=== PATIENT | male | born 1940 | race Caucasian/White ===

== ENCOUNTER 2017-04-25 14:19 | Emergency (ER) | payer MEDICARE, OTHER ==
[~2017-04-25] VITALS: Ht 185.4 cm; Wt 80.0 kg
[~2017-04-25 14:19] MED LIST: ADVAIR; ADVAIR DISK1; ALBUTEROL S2.5 MG/.5 IN; ALTACE5 M1 OR; HOME NEBULIZER; JANUVIA100 MG OR; METOPROL TAR25 MG OR; MUCINEX600 MG; PLAVIX75 MG OR; SIMVASTATIN80 MG OR; SINGULAIR10 MG OR; SKELAXIN800 MG OR; SPIRIVA IN; TAM75CAP OR; TGT ASPIRIN81 MG OR; ZETIA10 MG OR
[2017-04-25 14:42] LABS: HEMATOCRIT 42.7 % (39.0-50.0); HEMOGLOBIN 14.4 g/dl (14.0-18.0); IMMATURE GRANULOCYTES 0.7 % (0.0-1.0); MEAN CELL VOLUME 91.8 fL CALC (80.0-100.0); MEAN CORPUSCULAR HGB CONC 33.7 g/L CALC (32.0-36.0); NEUT# 6.45 thou/uL (1.82-7.42); RED BLOOD COUNT 4.65 mill/uL (4.70-6.10); RED CELL DISTRI WIDTH 13.8 % (11.5-15.5)
[2017-04-25] MEDS ORDERED: METOPROLOL SUCC25 MG PO (14:49)
[2017-04-25] MEDS ORDERED: SIMVASTATIN40 MG PO (14:51)
[2017-04-25 14:55] LABS: ALBUMIN 4.4 g/dL (3.2-5.0); ALKALINE PHOSPHATASE 65 u/l (38-126); ANION GAP 19 (6-22 (CALC)); BUN 16 mg/dL (8-23); BUN/CREATININE RATIO 15 (12-20 (CALC)); CALCIUM 9.2 mg/dL (8.4-10.2); CARBON DIOXIDE 23 mmol/l (22-30); CHLORIDE 103 mmol/l (95-108); CREATININE 1.1 mg/dL (0.7-1.3); GFR > 60 ML/MIN (>=60 (CALC)); GFR FOR AFR.AMER. > 60 ML/MIN (>=60 (CALC)); GLUCOSE 166 mg/dL (82-115); POTASSIUM 4.9 mmol/l (3.5-5.1); SGOT/AST 38 u/l (19-48); SGPT/ALT 30 u/l (11-66); SODIUM 139 mmol/l (137-146)
[2017-04-25] MEDS ORDERED: RAMIPRIL2.5 MG PO (14:55)
[2017-04-25 15:03] LABS: MYOGLOBIN 89 ng/mL (0 - 121)
[2017-04-25] MEDS ORDERED: METFORMIN500 MG PO (15:24)
[2017-04-25] MEDS ORDERED: ADVAIR DISK1 INH (15:24)
[2017-04-25] MEDS ORDERED: BRIMONIDINE TAR0.2 % OS (15:25)
[2017-04-25 17:01] LABS: URINE BILIRUBIN - DIPSTICK NEGATIVE (NEGATIVE); URINE BLOOD DIPSTICK NEGATIVE (NEGATIVE); URINE CLARITY SLIGHT CLOUDY; URINE COLOR YELLOW; URINE GLUCOSE - DIPSTICK NEGATIVE (NEGATIVE); URINE KETONE NEGATIVE (NEGATIVE); URINE LEUK ESTERASE NEGATIVE (NEGATIVE); URINE NITRITE - DIPSTICK NEGATIVE (Negative); URINE PROTEIN - DIPSTICK TRACE mg/dL (NEG-TRACE); URINE UROBILINOGEN - DIPSTICK 0.2 E.U./dL (0.2)
[2017-04-25] MEDS ORDERED: IMODIUM2 MG PO (17:04)
[2017-04-25] MEDS ORDERED: CIPROFLOXACN500 MG PO (17:04)
[2017-04-25 18:31] VITALS: BP 108/57
== END 2017-04-25 18:31 | disposition home or self-care (01) ==
LOC: ED 14:19
PROVIDERS: Emergency Medicine
DX: R19.7 Diarrhea, unspecified (principal); R53.1 Weakness; J44.9 Chronic obstructive pulmonary disease, unspecified; E11.9 Type 2 diabetes mellitus without complications; I25.10 Atherosclerotic heart disease of native coronary artery without angina pectoris; Z95.5 Presence of coronary angioplasty implant and graft; R94.31 Abnormal electrocardiogram [ECG] [EKG]

== ENCOUNTER 2017-12-20 07:59 | Observation (INO) | payer MEDICARE, OTHER ==
[~2017-12-20] VITALS: Ht 185.4 cm; Wt 71.7 kg
[~2017-12-20 07:59] MED LIST changes: +ADVAIR DISK1 INH; +BRIMONIDINE TAR0.2 % OS; +CIPROFLOXACN500 MG PO; +IMODIUM2 MG PO; +LOPRESSOR25 M1 PO; +METFORMIN500 MG PO; +RAMIPRIL2.5 MG PO; +SIMVASTATIN40 MG PO
[2017-12-20] MEDS ORDERED: SPIRIVA HANDIH18 MCG PO (08:22)
[2017-12-20] MEDS ORDERED: ZETIA10 MG PO (08:23)
[2017-12-20] MEDS ORDERED: ELIQUIS5 MG PO (08:26)
[2017-12-20] MEDS ORDERED: PROAIR HFA108 MCG/AC (08:28)
[2017-12-20 08:44] LABS: HEMATOCRIT 45.2 % (39.0-50.0); HEMOGLOBIN 15.4 g/dl (14.0-18.0); IMMATURE GRANULOCYTES 0.7 % (0.0-1.0); MEAN CELL VOLUME 91.3 fL CALC (80.0-100.0); MEAN CORPUSCULAR HGB 31.1 pG CALC (26.0-32.0); MEAN CORPUSCULAR HGB CONC 34.1 g/L CALC (32.0-36.0); NEUT# 5.16 thou/uL (1.82-7.42); RED BLOOD COUNT 4.95 mill/uL (4.70-6.10); RED CELL DISTRI WIDTH 13.4 % (11.5-15.5)
[2017-12-20 08:54] LABS: ALBUMIN 4.6 g/dL (3.2-5.0); ALKALINE PHOSPHATASE 70 u/l (38-126); ANION GAP 18 (6-22 (CALC)); BILIRUBIN, TOTAL 0.7 mg/dL (0.0-1.4); BUN 14 mg/dL (8-23); BUN/CREATININE RATIO 18 (12-20 (CALC)); CARBON DIOXIDE 28 mmol/l (22-30); CHLORIDE 100 mmol/l (95-108); CREATININE 0.8 mg/dL (0.7-1.3); GFR > 60 ML/MIN (>=60 (CALC)); GFR FOR AFR.AMER. > 60 ML/MIN (>=60 (CALC)); LIPASE 69 u/l (23-300); POTASSIUM 4.5 mmol/l (3.5-5.1); SGOT/AST 22 u/l (19-48); SGPT/ALT 30 u/l (11-66); SODIUM 142 mmol/l (137-146); TOTAL PROTEIN 7.5 g/dL (6.3-8.2)
[2017-12-20 10:30] VITALS: BP 187/98
[2017-12-20 15:54] VITALS: BP 150/78
[2017-12-20 17:15] LABS: MAGNESIUM 1.8 mg/dL (1.6-2.3)
[2017-12-20 19:05] VITALS: BP 166/86
[2017-12-21 00:05] VITALS: BP 170/92
[2017-12-21 05:29] LABS: HEMATOCRIT 45.1 % (39.0-50.0); HEMOGLOBIN 15.2 g/dl (14.0-18.0); MEAN CELL VOLUME 89.8 fL CALC (80.0-100.0); MEAN CORPUSCULAR HGB 30.3 pG CALC (26.0-32.0); MEAN CORPUSCULAR HGB CONC 33.7 g/L CALC (32.0-36.0); RED BLOOD COUNT 5.02 mill/uL (4.70-6.10); RED CELL DISTRI WIDTH 13.3 % (11.5-15.5)
[2017-12-21 05:30] VITALS: BP 164/87
[2017-12-21 05:46] LABS: ANION GAP 18 (6-22 (CALC)); BUN 12 mg/dL (8-23); BUN/CREATININE RATIO 21 (12-20 (CALC)); CARBON DIOXIDE 23 mmol/l (22-30); CHLORIDE 101 mmol/l (95-108); CREATININE 0.6 mg/dL (0.7-1.3); GFR > 60 ML/MIN (>=60 (CALC)); GFR FOR AFR.AMER. > 60 ML/MIN (>=60 (CALC)); POTASSIUM 4.1 mmol/l (3.5-5.1); SODIUM 138 mmol/l (137-146)
[2017-12-21 08:00] VITALS: BP 167/88
[2017-12-21 10:20] VITALS: BP 148/70
[2017-12-21 12:00] VITALS: BP 137/75
[2017-12-21] MEDS ORDERED: AMLODIPINE BESYL5 MG PO (12:50)
[2017-12-21] MEDS ORDERED: ISOSORB MONO30 MG PO (12:50)
== END 2017-12-21 14:10 | disposition home or self-care (01) ==
LOC: ED 07:59 → ED-I 09:29 → ED 09:46 → MS2 09:47
PROVIDERS: Emergency Medicine; Nurse Practitioner Family; ADMIT Internal Medicine; ATTEND Internal Medicine
DX: R07.9 Chest pain, unspecified (principal); I16.0 Hypertensive urgency; I10 Essential (primary) hypertension; E11.9 Type 2 diabetes mellitus without complications; F03.90 Unspecified dementia, unspecified severity, without behavioral disturbance, psychotic disturbance, mood disturbance, and anxiety; J96.11 Chronic respiratory failure with hypoxia; E78.5 Hyperlipidemia, unspecified; J44.9 Chronic obstructive pulmonary disease, unspecified; I25.10 Atherosclerotic heart disease of native coronary artery without angina pectoris; I48.0 Paroxysmal atrial fibrillation; Z87.891 Personal history of nicotine dependence; Z79.01 Long term (current) use of anticoagulants; R63.6 Underweight; Z68.20 Body mass index [BMI] 20.0-20.9, adult; Z95.5 Presence of coronary angioplasty implant and graft; Z79.84 Long term (current) use of oral hypoglycemic drugs; Z99.81 Dependence on supplemental oxygen

== ENCOUNTER 2017-12-21 16:02 | Emergency (ER) | payer MEDICARE, OTHER ==
[~2017-12-21] VITALS: Ht 185.4 cm; Wt 78.0 kg
[~2017-12-21 16:02] MED LIST changes: +AMLODIPINE BESYL5 MG PO; +ELIQUIS5 MG PO; +ISOSORB MONO30 MG PO; +PROAIR HFA108 MCG/AC; +SPIRIVA HANDIH18 MCG PO; +ZETIA10 MG PO
[2017-12-21 17:04] LABS: HEMATOCRIT 43.4 % (39.0-50.0); HEMOGLOBIN 14.6 g/dl (14.0-18.0); IMMATURE GRANULOCYTES 0.6 % (0.0-1.0); MEAN CORPUSCULAR HGB 30.6 pG CALC (26.0-32.0); MEAN CORPUSCULAR HGB CONC 33.6 g/L CALC (32.0-36.0); NEUT# 10.76 thou/uL (1.82-7.42); RED BLOOD COUNT 4.77 mill/uL (4.70-6.10); RED CELL DISTRI WIDTH 13.5 % (11.5-15.5)
[2017-12-21 17:20] LABS: ALBUMIN 4.1 g/dL (3.2-5.0); ALKALINE PHOSPHATASE 68 u/l (38-126); ANION GAP 20 (6-22 (CALC)); BILIRUBIN, TOTAL 0.5 mg/dL (0.0-1.4); BUN 20 mg/dL (8-23); BUN/CREATININE RATIO 24 (12-20 (CALC)); CARBON DIOXIDE 23 mmol/l (22-30); CHLORIDE 97 mmol/l (95-108); CREATININE 0.9 mg/dL (0.7-1.3); GFR > 60 ML/MIN (>=60 (CALC)); GFR FOR AFR.AMER. > 60 ML/MIN (>=60 (CALC)); POTASSIUM 4.4 mmol/l (3.5-5.1); SGOT/AST 20 u/l (19-48); SGPT/ALT 34 u/l (11-66); SODIUM 135 mmol/l (137-146); TOTAL PROTEIN 6.7 g/dL (6.3-8.2)
[2017-12-21 17:42] VITALS: BP 140/58
== END 2017-12-21 17:47 | disposition home or self-care (01) ==
LOC: ED 16:02
PROVIDERS: Emergency Medicine
DX: Z86.73 Personal history of transient ischemic attack (TIA), and cerebral infarction without residual deficits (principal); R41.82 Altered mental status, unspecified; E11.9 Type 2 diabetes mellitus without complications; F03.90 Unspecified dementia, unspecified severity, without behavioral disturbance, psychotic disturbance, mood disturbance, and anxiety; R07.9 Chest pain, unspecified

== ENCOUNTER 2018-01-18 09:08 | Emergency (ER) | payer MEDICARE, OTHER ==
[~2018-01-18] VITALS: Ht 185.4 cm; Wt 75.0 kg
[2018-01-18 09:42] LABS: HEMATOCRIT 40.2 % (39.0-50.0); HEMOGLOBIN 13.5 g/dl (14.0-18.0); IMMATURE GRANULOCYTES 0.5 % (0.0-1.0); MEAN CORPUSCULAR HGB 30.9 pG CALC (26.0-32.0); MEAN CORPUSCULAR HGB CONC 33.6 g/L CALC (32.0-36.0); NEUT# 5.04 thou/uL (1.82-7.42); RED BLOOD COUNT 4.37 mill/uL (4.70-6.10); RED CELL DISTRI WIDTH 13.5 % (11.5-15.5)
[2018-01-18 09:48] LABS: ANION GAP 17 (6-22 (CALC)); BUN 14 mg/dL (8-23); BUN/CREATININE RATIO 19 (12-20 (CALC)); CARBON DIOXIDE 28 mmol/l (22-30); CHLORIDE 100 mmol/l (95-108); CREATININE 0.8 mg/dL (0.7-1.3); GFR > 60 ML/MIN (>=60 (CALC)); GFR FOR AFR.AMER. > 60 ML/MIN (>=60 (CALC)); POTASSIUM 4.8 mmol/l (3.5-5.1); SODIUM 140 mmol/l (137-146)
[2018-01-18 09:50] VITALS: BP 140/72
== END 2018-01-18 09:50 | disposition short-term general hospital (02) ==
LOC: ED 09:08
PROVIDERS: Family Medicine
DX: I21.3 ST elevation (STEMI) myocardial infarction of unspecified site (principal); I25.10 Atherosclerotic heart disease of native coronary artery without angina pectoris; J44.9 Chronic obstructive pulmonary disease, unspecified; F03.90 Unspecified dementia, unspecified severity, without behavioral disturbance, psychotic disturbance, mood disturbance, and anxiety

== ENCOUNTER 2018-05-10 15:49 | Observation (INO) | payer MEDICARE, OTHER ==
[~2018-05-10] VITALS: Ht 185.4 cm; Wt 72.1 kg
--- NOTE | 2018-05-10 16:03 | NUR ---
PT TO ROOM PER W/C
--- NOTE | 2018-05-10 16:40 | NUR ---
PT RESPONDS APPROPRIATELY TO QUESTIONS. STATES HE "JUST FEELS WEAK". STATES HE HAS BEEN FEELING WEAK "FOR DAYS". LUNGS CLEAR. NO C/O CHEST PAIN.
[2018-05-10 17:01] LABS: HEMOGLOBIN 13.4 g/dl (14.0-18.0); IMMATURE GRANULOCYTES 0.7 % (0.0-5.0); MEAN CELL VOLUME 90.3 fL CALC (80.0-100.0); MEAN CORPUSCULAR HGB 30.2 pG CALC (26.0-32.0); MEAN CORPUSCULAR HGB CONC 33.5 g/L CALC (32.0-36.0); NEUT# 5.35 thou/uL (1.82-7.42); RED BLOOD COUNT 4.43 mill/uL (4.70-6.10); RED CELL DISTRI WIDTH 13.3 % (11.5-15.5)
[2018-05-10 17:15] LABS: ANION GAP 15 (6-22 (CALC)); BUN 17 mg/dL (8-23); BUN/CREATININE RATIO 23 (12-20 (CALC)); CARBON DIOXIDE 26 mmol/l (22-30); CHLORIDE 102 mmol/l (95-108); CREATININE 0.8 mg/dL (0.7-1.3); GFR > 60 ML/MIN (>=60 (CALC)); GFR FOR AFR.AMER. > 60 ML/MIN (>=60 (CALC)); SODIUM 139 mmol/l (137-146)
[2018-05-10] MEDS ORDERED: NITRO-DUR0.4 MG/HR TD (17:18)
[2018-05-10] MEDS ORDERED: XANAX0.25 MG PO (17:18)
--- NOTE | 2018-05-10 17:20 | NUR ---
PT RESTING IN NO ACUTE DISTRESS. WARM BLANKET FOR COMFORT. PLEASANT AND COOPERATIVE WITH CARE.
--- NOTE | 2018-05-10 18:13 | NUR ---
MD AT BEDSIDE TO DISCUSS CLINICAL FINDINGS. PT AGREEABLE FOR ADMIT. NO DISTRESS NOTED. AT BEDSIDE
--- NOTE | 2018-05-10 18:54 | NUR ---
CALLED REPORT TO NADINE PUGA MS2
[2018-05-10 19:20] VITALS: BP 171/75
--- NOTE | 2018-05-10 19:20 | NUR ---
PT ARRIVED TO THE FLOOR VIA STRETCHER ACCOMPANIED BY ED NURSE. PT APPEARS TO BE IN STABLE CONDITION. NO S/S OF DISTRESS NOTED. V/S ARE BEING ASSESSED AND PT ORIENTED TO ROOM, CALL SYSTEM, LIGHTS, BED AND TV. POC DISCUSSED WITH PT AND . WILL FOLLOW-UP WITH FULL ASSESSMENT AND MEDICATIONS ORDERS PROVIDE.
--- NOTE | 2018-05-10 19:30 | NUR ---
TO FLOOR BY Susy POTTER
[2018-05-10 20:10] LABS: URINE BILIRUBIN - DIPSTICK NEGATIVE (NEGATIVE); URINE BLOOD DIPSTICK NEGATIVE (NEGATIVE); URINE COLOR YELLOW; URINE GLUCOSE - DIPSTICK NEGATIVE (NEGATIVE); URINE KETONE NEGATIVE (NEGATIVE); URINE LEUK ESTERASE NEGATIVE (NEGATIVE); URINE NITRITE - DIPSTICK NEGATIVE (Negative); URINE PH 6.5 (4.5-8.0); URINE PROTEIN - DIPSTICK NEGATIVE (NEG-TRACE); URINE SPECIFIC GRAVITY 1.015; URINE UROBILINOGEN - DIPSTICK 0.2 E.U./dL (0.2)
[2018-05-10 20:18] LABS: URINE CLARITY CLEAR
[2018-05-10 20:30] VITALS: BP 151/82
--- NOTE | 2018-05-10 20:35 | NUR ---
ED CALLED TO REPORT PT HAD AN 11 BEAT RUN OF V-TACH/HR271 AND RETURNED TO . V/S ASSESSED BP151/82, HR85, O2 97% PT IS ASYMPTOMATIC AND DENIES ANY PAIN/N/V/SOB OR SWEATS. PT IS LAYING IN BED TALKING WITH AT THE TIME. NO S/S OF DISTRESS NOTED. EKG ORDERED AND PHYSICIAN NOTIFIED, NO NEW ORDERS AT THIS TIME.
--- NOTE | 2018-05-10 20:44 | NUR ---
PHYSICIAN ORDERED LABS FOR PT, WILL PLACE ORDER AND NOTIFY LAB
[2018-05-10 23:54] VITALS: BP 158/80
--- NOTE | 2018-05-11 03:25 | NUR ---
PT AMBULATED TO RESTROOM AND BACK TO BED W/1X STANDBY ASSIST. NO S/S OF DISTRESS, NO SOB NOTED, NO PAIN OR DIZZINESS REPORTED. CALL LIGHT LEFT AT BEDSIDE AND PT REORIENTED TO CALL LIGHT, BED ALARM ON.
--- NOTE | 2018-05-11 04:05 | NUR ---
PT UP TO RESTROOM AND BACK TO BED. PT DENIES ANY NEEDS AT THIS TIME. BED ALARM ON AND CALL LIGHT AT SIDE.
[2018-05-11 04:44] VITALS: BP 154/83
--- NOTE | 2018-05-11 05:55 | NUR ---
PT IS SLEEPING SOUNDLY, NO S/S OF DISTRESS NOTED. CALL LIGHT AT SIDE.
--- NOTE | 2018-05-11 07:00 | NUR ---
SHIFT CHANGE REPORT FROM MIRNA MCCOY AWAKE ALERT AND ORIENTED SITTING UP IN CHAIR, O2 @ 2L VIA NC IN PLACE, TELE MONITOR IN PLACE, NO C/O DISCOMFORT, CALL VIDAL IN REACH.
[2018-05-11 08:24] VITALS: BP 174/75
--- NOTE | 2018-05-11 09:00 | NUR ---
PT SITTING UP IN BED, SPOUSE AT BEDSIDE REQUESTING XANAX STATING PT TAKES IT TID, BIG DATA DEVELOPER NOTIFIED AND WROTE ORDERS, ALL NEEDS ADDRESSED, WILL CONTINUE TO MONITOR.
[2018-05-11 11:37] VITALS: BP 151/63
--- NOTE | 2018-05-11 15:24 | NUR ---
Discharge instructions given. Patient verbalizes understanding of same. Discharged in good condition via Wheelchair to Home with spouse. All belongings sent with pt.
== END 2018-05-11 15:25 | disposition home or self-care (01) ==
LOC: ED 15:49 → ED-I 18:05 → ED 18:14 → MS2 18:15
PROVIDERS: Family Medicine; ADMIT Internal Medicine; ATTEND Internal Medicine
DX: R55 Syncope and collapse (principal); R41.82 Altered mental status, unspecified; I10 Essential (primary) hypertension; E11.9 Type 2 diabetes mellitus without complications; E78.5 Hyperlipidemia, unspecified; J44.9 Chronic obstructive pulmonary disease, unspecified; F03.90 Unspecified dementia, unspecified severity, without behavioral disturbance, psychotic disturbance, mood disturbance, and anxiety; I25.10 Atherosclerotic heart disease of native coronary artery without angina pectoris; I48.0 Paroxysmal atrial fibrillation; Z79.84 Long term (current) use of oral hypoglycemic drugs; Z87.891 Personal history of nicotine dependence; Z86.73 Personal history of transient ischemic attack (TIA), and cerebral infarction without residual deficits; Z99.81 Dependence on supplemental oxygen; Z79.01 Long term (current) use of anticoagulants

== ENCOUNTER 2018-08-12 15:18 | Emergency (ER) | payer MEDICARE, OTHER ==
[~2018-08-12] VITALS: Ht 182.9 cm; Wt 71.4 kg
[~2018-08-12 15:18] MED LIST changes: -BRIMONIDINE TAR0.2 % OS; -ELIQUIS5 MG PO; +NITRO-DUR0.4 MG/HR TD; -PROAIR HFA108 MCG/AC; +XANAX0.25 MG PO; -ZETIA10 MG PO
[2018-08-12] MEDS ORDERED: ESCITALOPRAM OX10 MG PO (16:08)
[2018-08-12] MEDS ORDERED: ALPRAZOLAM0.25 MG PO (16:10)
[2018-08-12] MEDS ORDERED: VIMPAT100 MG PO (16:10)
[2018-08-12] MEDS ORDERED: JANUVIA100 MG PO (16:11)
[2018-08-12] MEDS ORDERED: ALTACE10 MG PO (16:12)
[2018-08-12] MEDS ORDERED: ELIQUIS5 MG PO (16:15)
[2018-08-12] MEDS ORDERED: ZETIA10 MG PO (16:31)
[2018-08-12] MEDS ORDERED: BRIMONIDINE TAR0.2 % OU (16:33)
[2018-08-12] MEDS ORDERED: PROAIR HFA108 MCG/AC IN (16:34)
[2018-08-12 17:11] LABS: HEMATOCRIT 38.6 % (39.0-50.0); HEMOGLOBIN 12.8 g/dl (14.0-18.0); IMMATURE GRANULOCYTES 0.7 % (0.0-5.0); MEAN CELL VOLUME 93.9 fL CALC (80.0-100.0); MEAN CORPUSCULAR HGB 31.1 pG CALC (26.0-32.0); MEAN CORPUSCULAR HGB CONC 33.2 g/L CALC (32.0-36.0); NEUT# 6.98 thou/uL (1.82-7.42); RED BLOOD COUNT 4.11 mill/uL (4.70-6.10); RED CELL DISTRI WIDTH 14.1 % (11.5-15.5)
[2018-08-12 17:50] LABS: ALKALINE PHOSPHATASE 141 u/l (38-126); ANION GAP 15 (6-22 (CALC)); BILIRUBIN, TOTAL 0.5 mg/dL (0.0-1.4); BUN 21 mg/dL (8-23); BUN/CREATININE RATIO 32 (12-20 (CALC)); CARBON DIOXIDE 25 mmol/l (22-30); CHLORIDE 101 mmol/l (95-108); CREATININE 0.6 mg/dL (0.7-1.3); GFR > 60 ML/MIN (>=60 (CALC)); GFR FOR AFR.AMER. > 60 ML/MIN (>=60 (CALC)); LIPASE 70 u/l (23-300); POTASSIUM 4.4 mmol/l (3.5-5.1); SGOT/AST 95 u/l (19-48); SODIUM 136 mmol/l (137-146); TOTAL PROTEIN 6.2 g/dL (6.3-8.2)
[2018-08-12 18:01] LABS: URINE BILIRUBIN - DIPSTICK NEGATIVE (NEGATIVE); URINE BLOOD DIPSTICK NEGATIVE (NEGATIVE); URINE COLOR YELLOW; URINE GLUCOSE - DIPSTICK NEGATIVE (NEGATIVE); URINE KETONE NEGATIVE (NEGATIVE); URINE LEUK ESTERASE NEGATIVE (NEGATIVE); URINE NITRITE - DIPSTICK NEGATIVE (Negative); URINE PROTEIN - DIPSTICK TRACE mg/dL (NEG-TRACE); URINE SPECIFIC GRAVITY 1.025; URINE UROBILINOGEN - DIPSTICK 0.2 E.U./dL (0.2)
[2018-08-12 20:09] VITALS: BP 154/83
[2018-08-12] MEDS ORDERED: IBUPROFEN600 MG PO (20:10)
== END 2018-08-12 20:25 | disposition home or self-care (01) ==
LOC: ED 15:18
PROVIDERS: Family Medicine
DX: S22.41XA Multiple fractures of ribs, right side, initial encounter for closed fracture (principal); J90 Pleural effusion, not elsewhere classified; R74.8 Abnormal levels of other serum enzymes; E11.9 Type 2 diabetes mellitus without complications; J44.9 Chronic obstructive pulmonary disease, unspecified; F03.90 Unspecified dementia, unspecified severity, without behavioral disturbance, psychotic disturbance, mood disturbance, and anxiety; W01.0XXA Fall on same level from slipping, tripping and stumbling without subsequent striking against object, initial encounter; Y93.89 Activity, other specified; Y92.009 Unspecified place in unspecified non-institutional (private) residence as the place of occurrence of the external cause
CPT/HCPCS: Q9967

== ENCOUNTER 2018-08-18 10:17 | Inpatient (IN) | payer MEDICARE, OTHER ==
[~2018-08-18] VITALS: Ht 182.9 cm; Wt 70.1 kg
[~2018-08-18 10:17] MED LIST changes: +ALPRAZOLAM0.25 MG PO; +ALTACE10 MG PO; +BRIMONIDINE TAR0.2 % OU; +ELIQUIS5 MG PO; +ESCITALOPRAM OX10 MG PO; +IBUPROFEN600 MG PO; +JANUVIA100 MG PO; +PROAIR HFA108 MCG/AC IN; +VIMPAT100 MG PO; +ZETIA10 MG PO
--- NOTE | 2018-08-18 10:17 | NUR ---
TO RM 6 VIA EMS
[2018-08-18 10:50] LABS: HEMATOCRIT 36.5 % (39.0-50.0); IMMATURE GRANULOCYTES 0.6 % (0.0-5.0); MEAN CELL VOLUME 93.6 fL CALC (80.0-100.0); MEAN CORPUSCULAR HGB 30.8 pG CALC (26.0-32.0); MEAN CORPUSCULAR HGB CONC 32.9 g/L CALC (32.0-36.0); NEUT# 6.12 thou/uL (1.82-7.42); RED BLOOD COUNT 3.9 mill/uL (4.70-6.10); RED CELL DISTRI WIDTH 13.8 % (11.5-15.5)
--- NOTE | 2018-08-18 10:50 | NUR ---
PT SENT TO ER BY HOME HEALTH FOR HYPERTENSTION. UPON ARRIVAL PT STATES HAVING SLIGHT CHEST PAIN DURING TRANSPORT WITH EMS. PAIN IS NON RADIATING. PT IS AOX3 WITH HISTORY OF DEMENTIA. PTS AT BEDSIDE FOR QUESTIONS. HOME NITRO PATCHED REMOVED PER MD GOMEZ
[2018-08-18 11:06] LABS: ALBUMIN 3.5 g/dL (3.2-5.0); ANION GAP 13 (6-22 (CALC)); BUN 10 mg/dL (8-23); BUN/CREATININE RATIO 18 (12-20 (CALC)); CARBON DIOXIDE 27 mmol/l (22-30); CHLORIDE 101 mmol/l (95-108); CREATININE 0.6 mg/dL (0.7-1.3); GFR > 60 ML/MIN (>=60 (CALC)); GFR FOR AFR.AMER. > 60 ML/MIN (>=60 (CALC)); LIPASE 59 u/l (23-300); POTASSIUM 4.3 mmol/l (3.5-5.1); SGOT/AST 157 u/l (19-48); SODIUM 136 mmol/l (137-146); TOTAL PROTEIN 5.9 g/dL (6.3-8.2)
[2018-08-18 11:08] LABS: ALKALINE PHOSPHATASE 232 u/l (38-126)
[2018-08-18 11:31] LABS: PROTHROMBIN TIME 10.9 SECONDS (9.0-12.5)
--- NOTE | 2018-08-18 11:50 | NUR ---
PT RESTING ON STRETCHER, NO COMPLAINTS STATED AT THIS TIME.
--- NOTE | 2018-08-18 12:50 | NUR ---
PT RESTING ON STRETCHER, WITH IV PATENT WITH ANTIBIOTICS RUNNING. PT HAS NO COMPLAINTS AT THIS TIME.
[2018-08-18] MEDS ORDERED: XANAX0.25 MG PO (13:20)
[2018-08-18 13:22] LABS: URINE BILIRUBIN - DIPSTICK NEGATIVE (NEGATIVE); URINE BLOOD DIPSTICK NEGATIVE (NEGATIVE); URINE COLOR YELLOW; URINE GLUCOSE - DIPSTICK NEGATIVE (NEGATIVE); URINE KETONE NEGATIVE (NEGATIVE); URINE LEUK ESTERASE NEGATIVE (NEGATIVE); URINE NITRITE - DIPSTICK NEGATIVE (Negative); URINE PROTEIN - DIPSTICK NEGATIVE (NEG-TRACE)
[2018-08-18] MEDS ORDERED: LEXAPRO10 MG PO (13:23)
--- NOTE | 2018-08-18 13:34 | NUR ---
REPORT CALLED TO VIANNEY WEBB ACCEPTED PT
--- NOTE | 2018-08-18 13:43 | NUR ---
PT CAME FROM ER VIA STRETCHER BY CARLIN LANGE. PRODUCT SCIENTIST IN ROOM TO ASSIST PT TO BED, OBTAIN WT AND VS. IN ROOM. CALL LIGHT IN REACH.
[2018-08-18 13:50] VITALS: BP 157/68
--- NOTE | 2018-08-18 13:50 | NUR ---
Admission Note Report Given to: VIANNEY GILLIS Transported by: Wheelchair X Stretcher Transported with: X Nurse Transporter X Patent IV X O2 X Rating Officer TRANSPORTED [place] [facility] [place]
--- NOTE | 2018-08-18 14:20 | NUR ---
ASSESSMENT DONE ASSISTED WITH ADMISSION QUESTIONS. PT IS A&O X1 AND GETS CONFUSED AT TIMES. PT DENIES PAIN AT THIS TIME. TELE IN PLACE. # 18 LAC THAT APPEARS HEALTHY.RIGHT BACK ABD SIDE HAS A LARGE BRUISE PT FELL AT HOME A FEW DAYS AGO. SAFETY PRECAUTIONS REINFORCED AND CALL LIGHT IN REACH.
--- NOTE | 2018-08-18 16:06 | NUR ---
PT IS RESTING IN BED WITH NO S/S OF DISTRESS NOTED. PT DENIES NEEDS AT THIS TIME. IN ROOM AND CALL LIGHT IN REACH.
[2018-08-18 16:10] VITALS: BP 152/70
--- NOTE | 2018-08-18 19:00 | NUR ---
PT RESTING IN BED. NO NEEDS AT THIS TIME. AT BEDSIDE. CALL VIDAL IN REACH. WILL CONTINUE TO MONITOR.
[2018-08-18 19:17] VITALS: BP 156/97
--- NOTE | 2018-08-18 20:15 | NUR ---
PT RESTING IN BED. NO DISTRESS NOTED. PT IS ALERT TO SELF AND PLACE. VERY PLEASANT, AT BEDSIDE. BED ALARM IN PLACE, O2 2L. ASSESSMENT COMPLETED AT THIS TIME(SEE INTERVENTION) LUNG SOUNDS DIMINISHED, HR REGULAR, BOWEL SOUNDS ACTIVE, LARGE BRUISING TO RIGHT SIDE NOTED. SCANT EDEMA TO LEGS NOTED. IV FLUSHES WELL. PT NEEDS MET AT THIS TIME. CALL VIDAL IN REACH. WILL CONTINUE TO MONITOR.
--- NOTE | 2018-08-19 | NUR ---
PT RESTING IN BED WITH EYES CLOSED, NO S/S OF DISTRESS NOTED. O2 ON AT 2L. AT BEDSIDE. CALL VIDAL IN REACH. WILL CONTINUE TO MONITOR.
[2018-08-19 00:30] VITALS: BP 154/86
--- NOTE | 2018-08-19 02:35 | NUR ---
PT C/O NOT BEING ABLE TO VOID. AFTER FINALLY VOIDING ONLY 200 PT WAS BLADDER SCANNED AND HAD 401 ML. #[address] USING STERILE TECHNIQUE, PT TOLRATED WELL. 400 ML OF CLEAR YELLOW URINE EMPTIED FROM BAG. PT APPRECIATIVE OF CARE. AT BED SIDE. NO NEEDS AT THIS TIME. PT REMAINS NPO. O2 AT 2L. CALL VIDAL IN REACH. WILL CONTINUE TO MONITOR.
--- NOTE | 2018-08-19 04:00 | NUR ---
PT RESTING IN BED. NO S/S OF DISTRESS. CALL VIDAL IN REACH. WILL CONTINUE TO MONITOR.
[2018-08-19 04:55] VITALS: BP 173/96
[2018-08-19 06:16] LABS: HEMATOCRIT 35.8 % (39.0-50.0); HEMOGLOBIN 11.8 g/dl (14.0-18.0); IMMATURE GRANULOCYTES 0.5 % (0.0-5.0); MEAN CELL VOLUME 93.5 fL CALC (80.0-100.0); MEAN CORPUSCULAR HGB 30.8 pG CALC (26.0-32.0); NEUT# 4.96 thou/uL (1.82-7.42); RED BLOOD COUNT 3.83 mill/uL (4.70-6.10); RED CELL DISTRI WIDTH 13.7 % (11.5-15.5)
[2018-08-19 06:39] LABS: ALBUMIN 3.6 g/dL (3.2-5.0); ALKALINE PHOSPHATASE 221 u/l (38-126); ANION GAP 14 (6-22 (CALC)); BILIRUBIN, TOTAL 0.7 mg/dL (0.0-1.4); BUN 10 mg/dL (8-23); BUN/CREATININE RATIO 16 (12-20 (CALC)); CARBON DIOXIDE 28 mmol/l (22-30); CHLORIDE 101 mmol/l (95-108); CREATININE 0.6 mg/dL (0.7-1.3); GFR > 60 ML/MIN (>=60 (CALC)); GFR FOR AFR.AMER. > 60 ML/MIN (>=60 (CALC)); MAGNESIUM 1.7 mg/dL (1.6-2.3); POTASSIUM 4.6 mmol/l (3.5-5.1); SGOT/AST 68 u/l (19-48); SODIUM 138 mmol/l (137-146); TOTAL PROTEIN 5.9 g/dL (6.3-8.2)
--- NOTE | 2018-08-19 07:01 | NUR ---
REPORT RECEIVED BY ROB. PT IS RESTING IN BED WITH NO S/S OF DISTRESS NOTED AND IN ROOM. PT DENIES NEEDS AT THIS TIME. CALL LIGHT IN REACH.
[2018-08-19 07:40] VITALS: BP 169/89
--- NOTE | 2018-08-19 07:48 | NUR ---
ASSESSMENT DONE. LUNGS DIMINISHED. TELE IN PLACE. PT IS A&O X2. PT DENIES PAIN AT THIS TIME. PT IS NPO FOR HIS ULTRASOUND. PT IS FEELING ANXIOUS WANTS TO KNOW THE TIME FOR HIS TEST AND IN ROOM. TOLD THEM SOON I HAVE A TIME FOR THE ULTRASOUND I WILL LET THEM KNOW. BOTH VERBALIZED UNDERSTANDING. PT DENIES ANY OTHER NEEDS AT THIS TIME. SAFETY PRECAUTIONS REINFORCED AND CALL LIGHT IN REACH.
--- NOTE | 2018-08-19 09:02 | NUR ---
PT HAS MORE ANXIETY NOW AND IS UPSET. YUNIER SYSTEMS INTEGRATION MANAGER IN ROOM TO TELL THEM THAT THE US IS GOING TO BE DONE AT 1030. SWAB GIVEN TO PT FOR MOUTH. CALLED MELIDA SALAS THAT PT IS ANXIOUS ORDERS RECEIVED.
--- NOTE | 2018-08-19 09:14 | NUR ---
MEDICATED PT WITH ATIVAN SEE EMAR. IN ROOM. PT DENIES ANY OTHER NEEDS AT THIS TIME. CALL LIGHT IN REACH AND BED ALARM IN PLACE FOR SAFETY.
--- NOTE | 2018-08-19 09:33 | NUR ---
MELIDA SALAS IN ROOM SPEAKING TO PT AND AT THIS TIME.
--- NOTE | 2018-08-19 10:26 | NUR ---
PT STATED THAT THE ATIVAN DID HELP. PT GOING DOWN TO ULRASOUND VIA WHEELCHAIR BY HONING MACHINE OPERATOR TOOL. O2 AT 2L/MIN VIA NC IN PLACE.
--- NOTE | 2018-08-19 11:15 | NUR ---
PT IS RESTING IN BED WITH NO S/S OF DISTRESS NOTED. PT DENIES NEEDS AT THIS TIME. MARGE IS PATENT WITH MADI URINE. FAMILY IN ROOM. CALL LIGHT IN REACH.
--- NOTE | 2018-08-19 11:37 | NUR ---
NOTIFIED MELIDA SALAS THE ED CALLED STATED THAT PT IS HAVING LOTS OF PVC'S PT IS RESTING IN BED WITH NO S/S OF DISTRESS NOTED.SHOW THE FAXED ED SEND TO MELIDA. NO ORDERS RECEIVED AT THIS TIME.
[2018-08-19 15:35] VITALS: BP 116/67
--- NOTE | 2018-08-19 16:00 | NUR ---
PT IS RESTING IN BED. PT DENIES NEEDS AT THIS TIME. MARGE IS PATENT WITH MADI URINE. IN ROOM. CALL LIGHT IN REACH.
--- NOTE | 2018-08-19 17:42 | NUR ---
PT STATED HE IS ANXIOUS WANTS HIS XANAX. MEDICATED PT WITH XANAX SEE EMAR. STATED SHE WILL BE BRING HER DINNER. PT NOW IS AMBULATING IN THE HALLWAY USING A WALKER WITH A SLOW STEADY GAIT FILM DEVELOPING MACHINE OPERATOR AT SIDE.
--- NOTE | 2018-08-19 19:15 | NUR ---
RECEIVED CALL FROM KEILA IN ER STATES THAT PATIENT ST-140'S ON TELE. PATIENT FOUND IN THE BR WITH STAFF AND COUGHING AFTER PATIENT BRUSHED HIS TEETH. STATES THAT HE DOES SOMETIMES HAVE PROBLEMS AFTER EATING AND HAS SEEN SPEECH THERAPIST IN THE PAST FOR PROBLEMS WITH HIS ESOPHAGUS. PATIENT ASSISTED BACK TO THE BED. COUGHING SUBSIDED AND O2 VIA NASAL CANNULA IN PLACE. PATIENT WITH TELE MONITOR IN PLACE. IV SITE TO RIGHT HAND INTACT AND APPEARS HEALTHY AT THIS TIME. BIRD CATH PATENT AND DRAINING MADI URINE. AT BEDSIDE4 AND STATES THAT SHE WILL BE STAYING TONIGHT ON COT PROVIDED. SAFETY PRECAUTIONS REINFORCED. CALL LIGHT IN REACH. WILL CONT TO MONITOR.
[2018-08-19 19:52] VITALS: BP 171/91
[2018-08-19 21:26] VITALS: BP 144/84
--- NOTE | 2018-08-19 23:10 | NUR ---
PATIENT RESTING IN BED. DR. BOO CALLED REGUARDING CONT ST WITH RATE IN THE 120'S. NEW ORDER OBTAINED AND LOPRESSOR 12.5MG PO GIVEN AN EXTRA DOSE TONIGHT. PATIENT ALSO MEDICATED WITH XANAX ORDERED TO ASSIST WITH SLEEP. IS STAYING THE NIGHT AND RESTING ON COT PROVIDED. SAFETY PRECAUTIONS REINFORCED. CALL LIGHT IN REACH. WILL CONT TO MONITOR.
[2018-08-20] VITALS (7 sets, daily range): BP systolic 116–165; BP diastolic 55–84
--- NOTE | 2018-08-20 00:30 | NUR ---
RECIEVED CALL FROM -STATES THAT PATIENT WAS TRYING TO GET OOB WITH LEGS OUT OF THE BED. PATIENT ASSISTED BACK TO THE BED AND REPOSITIONED. PATIENT WITH LARGE ECCYMOTIC AREA TO RIGHT ABD/FLANK FROM FALL LAST WEEK. BRID CATH CARE DONE. BIRD CATH DRAINING MADI URINE. O2 VIA NASAL CANNULA IN PLACE AT 2LPM. HOB ELEVATED. BED ALARM IN PLACE FOR PATIENT SAFETY. CALL LIGHT IN REACH. WILL CONT TO MONITOR.
--- NOTE | 2018-08-20 04:00 | NUR ---
PATIENT APPEARS SLEEPING AT THIS TIME WITH O2 VIANASAL CANNULA IN PLACE. TELE MONITOR IN PLACE. POSITIONED ON LEFT SIDE. RESTING ON COT PROVIDED. BED ALARM IN PLACE FOR PATIENT SAFETY. CALL LIGHT IN REACH. WILL CONT TO MONITOR.
[2018-08-20 05:06] LABS: HEMATOCRIT 35.3 % (39.0-50.0); HEMOGLOBIN 11.6 g/dl (14.0-18.0)
[2018-08-20 05:19] LABS: ALKALINE PHOSPHATASE 176 u/l (38-126); SGOT/AST 35 u/l (19-48)
--- NOTE | 2018-08-20 07:44 | NUR ---
MEDICATED PT WITH XNANX PER PT REQUEST AND . ASSESSMENT DONE. TELE IN PLACE. PT IS A&O X2. PT DENIES PAIN AT THIS TIME. O2 AT 2L/MIN VIA NC. MARGE IS PATENT WITH MADI URINE. BED ALARM IN PLACE FOR SAFETY AND CALL LIGHT IN REACH.
--- NOTE | 2018-08-20 09:37 | NUR ---
TRIED TO ENCOURAGE PT TO GET A SHOWER. PT STATED NO TO BECAUSE OF FALLING AT HOME. SEWING MACHINE ATTACHMENT TESTER DID EXPLAIN TO AND PT THAT I CAN PLACE PT IN WHEEL CHAIR WHILE IN SHOWER TO SECURE PT FROM FALLING WHILE IN SHOWER. STATED SHE THINKS THAT WOULD BE BETTER AFTER LUNCH. PT IS VERY ANXIOUS ABOUT TRYING THE SHOWER DUE TO FALL AT HOME. SEWING MACHINE ATTACHMENT TESTER UNDERSTOOD THE PT AND 'S REQUEST WITH THE WHEEL CHAIR. ENCOURAGE TO COME FIND SEWING MACHINE ATTACHMENT TESTER OR RING CALL LIGHT WHEN EVER SHE FEELS HE IS READY FOR A SHOWER. CALL VIDAL IN REACH.
--- NOTE | 2018-08-20 12:14 | NUR ---
DR. BOO AND MELIDA ALFORD DISCUSS POC WITH PT AND . ASSISTED PT TO SIT IN THE RECLINER. MARGE IS PATENT WITH MADI URINE. MEDICATED PT WITH XNANX AND ULTRAM FOR PAIN IN RIGHT SIDE OF BACK. PT DENIES ANY OTHER NEEDS AT THIS TIME. CALL LIGHT IN REACH. IN ROOM.
--- NOTE | 2018-08-20 16:15 | NUR ---
REMOVED BIRD PER ORDER PT TOLERATED WELL. PT DENIES NEEDS AT THIS TIME. IN ROOM. CALL LIGHT IN REACH.
--- NOTE | 2018-08-20 19:23 | NUR ---
PT VOID 100ML IN THE URINAL. BLADDER SCAN PT 404ML OF URINE NOTED. JONO NURSE CALLING DR. BOO.
--- NOTE | 2018-08-20 19:39 | NUR ---
PATIENT RESTING IN BED WITH O2 VIA NASAL CANNULA IN PLACE AT 2LPM. AWAKE ALERT AND ORIENTEDX2. PATIENT WITH TELE MONITORING DEVICE IN PLACE. SALINE LOCK TO RIGHT HAND INTACT AND APPEARS HEALTHY AT THIS TIME. PATIENT VOIDED 100CC OF YELLOW URINE IN URINAL-PVR 404CC. DR. CORTEZ CALLED AND#16 WELSH BIRD REINSERTED WITHOUT ANY DIFFICULTY DRAINING CLEAR YELLOW URINE. RIGHT LAT CHEST AND ABD REMAIN ECCYMOTIC FROM PREVIOUS FALL. AT BEDSIDE. SAFETY PRECAUTIONS REINFORCED. CALL LIGHT IN REACH. WILL CONT TO MONITOR.
--- NOTE | 2018-08-21 01:14 | NUR ---
PATIENT APPEARS SLEEPING AT THIS TIME WITH HOB ELEVATED AND O2 VIA NASAL CANNULA IN PLACE. EYES CLOSED. RESP ARE EVEN AND UNLABORED AT THIS TIME. RESTING ON COT PROVIDED. TELE MONITOR IN PLACE. BED ALARM IN PLACE FOR PATIENT SAFETY. CALL LIGHT IN REACH. WILL CONT TO MONITOR.
--- NOTE | 2018-08-21 03:42 | NUR ---
PATIENT RESTING IN BED AT THIS TIME WITH HOB ELEVATED AND O2 VIA NASAL CANNULA IN PLACE. TELE MONITOR IN PLACE. BIRD PATENT AND DRAINING YELLOW URINE. RESTING ON COT PROVIDED. CALL LIGHT IN REACH. WILL CONT TO MONITOR.
[2018-08-21 05:31] VITALS: BP 132/76
[2018-08-21 05:37] LABS: ANION GAP 11 (6-22 (CALC)); BUN 14 mg/dL (8-23); BUN/CREATININE RATIO 22 (12-20 (CALC)); CARBON DIOXIDE 29 mmol/l (22-30); CHLORIDE 101 mmol/l (95-108); CREATININE 0.7 mg/dL (0.7-1.3); GFR > 60 ML/MIN (>=60 (CALC)); GFR FOR AFR.AMER. > 60 ML/MIN (>=60 (CALC)); MAGNESIUM 1.9 mg/dL (1.6-2.3); POTASSIUM 4.2 mmol/l (3.5-5.1); SODIUM 136 mmol/l (137-146)
[2018-08-21 05:50] LABS: HEMATOCRIT 34.2 % (39.0-50.0); HEMOGLOBIN 11.3 g/dl (14.0-18.0); MEAN CELL VOLUME 93.2 fL CALC (80.0-100.0); MEAN CORPUSCULAR HGB 30.8 pG CALC (26.0-32.0); RED BLOOD COUNT 3.67 mill/uL (4.70-6.10); RED CELL DISTRI WIDTH 13.6 % (11.5-15.5)
[2018-08-21 07:45] VITALS: BP 154/85
--- NOTE | 2018-08-21 07:58 | NUR ---
pt. sitting up in chair with no distress noted; denies needs/pain. assessment completed; is in at bedsidel; updated on poc; encouraged to call for any needs.
[2018-08-21 10:45] VITALS: BP 131/75
--- NOTE | 2018-08-21 11:17 | NUR ---
PT. ASSISTED BACK TO BED WITH STBY ASSISTANCE; MEDICATED WITH 7 UNITS OF NOVOLOG PER ORDER FOR BS; REMAINS AT BEDSIDE; CALL LIGHT IS IN REACH.
--- NOTE | 2018-08-21 14:46 | NUR ---
PT. SITTING UP IN BED WITH NO DISTRESS NOTED; DENIES NEEDS; CALL LIGHT IS IN REACH
[2018-08-21 15:00] VITALS: BP 150/78
--- NOTE | 2018-08-21 15:15 | NUR ---
RECEIVED PHONE CALL THAT PT'S HR IS UP TO 140'S-150'S; PT. IS AMBULATING DOWN THE HALLWAYS WITH PHYSICAL THERAPY; NOTIFIED DR. ROSALES AND MELIDA ALFORD; NO NEW ORDERS AT THIS TIME; WILL CONTINUE TO MONITOR.
--- NOTE | 2018-08-21 18:02 | NUR ---
NOTIFIED MELIDA ALFORD OF PT. AGAIN HAVING ELEVATED HR AT 150'S; THIS WILL INTERMITTENTLY HAPPEN WITH EXERTION; NO NEW ORDERS RECEIVED.
--- NOTE | 2018-08-21 18:45 | NUR ---
NOTIFIED MELIDA ALFORD THAT HR IS SUSTAINING IN THE 140'S; NEW ORDERS RECEIVED AND TO BE CARRIED OUT.
--- NOTE | 2018-08-21 20:00 | NUR ---
PATIENT RESTING IN BED WITH AT BEDSIDE. PATIENT WITH HOB ELEVATED AND O2 VIA NASAL CANNULA IN PLACE. TELE MONITOR IN PLACE. SALE LOCK TO RIGHT HAND INTACT AND APPEARS HEALTHY AT THIS TIME. BIRD CATH PATENT AND DRAINING YELLOW URINE. PATIENT MEDICATED WITH ATIVAN 1MG IVP ORDERED. SAFETY PRECAUTIONS REINFORCED.CALL LIGHT IN REACH. WILL CONT TO MONITOR.
[2018-08-21 20:01] VITALS: BP 136/75
[2018-08-22] VITALS (8 sets, daily range): BP systolic 113–157; BP diastolic 69–83
--- NOTE | 2018-08-22 01:00 | NUR ---
PATIENT RESTING IN BED APPEARS SLEEPING WITH EYES CLSOED. RESP ARE EVEN AND NPON-LABORED. TELE MONITOR IN PLAE. CALL LIGHT IN REACH. WILL CONT TO MONITOR.
--- NOTE | 2018-08-22 10:50 | NUR ---
PT. RETURNED FROM THOARCENTESIS VIA W/C.
--- NOTE | 2018-08-22 10:57 | NUR ---
NOTIFIED DR. ROSALES OF PT'S WIFES REQUEST FOR CARDIAC CONSULT FOR DR. RODRIGUEZ.
--- NOTE | 2018-08-22 11:54 | NUR ---
PATIENT IS FEELING BETTER AND WISHES TO AMB OUT OF ROOM IN HALLWAY. SUPINE TO SIT INDEP. SIT TO STAND AT RW WITH MIN A FOR GT WITH RW AND O2 AT 2 L. PATIENT WAS ABLE TO AMB 100 FEET WITH SBA WITHOUT SOB OR LOB. STAND TO SIT WITH V.C.'S FOR HAND PLACEMENT. NO APPARANT DISTRESS, TOLERATING TX WELL. W/C ARRIVED TO BRING PATIENT DOWNSTAIRS FOR A PROCEDURE.
--- NOTE | 2018-08-22 12:57 | NUR ---
SEEN ON ROUNDS BY DR. ROSALES, EXPLAINE THE PLAN OF CARE AND TO CONTINUE PRESENT ANTIBIOTICS. FAMILY AT BEDSIDE.
--- NOTE | 2018-08-22 13:18 | NUR ---
DR. ROSALES IN WITH PT. AND UPDATED FAMILY AND PT. WITH POC.
--- NOTE | 2018-08-22 18:05 | NUR ---
PATIENT SITTING IN BED, EATING DINNER REMAINS ON O2 AT 2LPM, DENIES PAIN OR DISCOMFORT AT THIS TIME. CALL LIGHT WITHIN REACH
--- NOTE | 2018-08-22 18:13 | NUR ---
MARKETING AND OUTREACH COORDINATOR CALLED AND NOTIFIED THIS VERTICAL PUNCH OPERATOR THAT PT'S HR IS 132; PT. SITTING UP IN BED WITH NO DISTRESS NOTED; DENIES NEEDS; NOTIFIED MARKETING AND OUTREACH COORDINATOR THAT IF PT. SUSTAINS TO CALL THIS VERTICAL PUNCH OPERATOR BACK.
--- NOTE | 2018-08-22 18:40 | NUR ---
NOTIFIED DR. BOO OF ELEVATED HR IN THE 130'S SUSTAINING; NEW ORDERS RECEIVED FOR LOPRESSOR 12.5MG PO; WILL CARRY OUT ORDER WHEN PROFILED.
--- NOTE | 2018-08-22 20:00 | NUR ---
PATIENT RESTING IN BED AT THIS TIME WITH AT BEDSIDE. PATIENT IS AWAKE ALERT AND ORIENTEDX3 WITH [address] CANNULA IN PLACE. HOB IS ELEVATED. TELE MONITOR IN PLACE. BIRD CATH PATENT AND DRAINING YELLOW URINE. IV SITE TO RIGHT WRIST INTACT AND APPEARS HEALTHY AT THIS TIME. BAND AID TO RIGHT THOARACENTESIS SITE-NO DRAINAGE NOTED. CONT TO EXPRESS CONCERNS REGUARDING DR. SALGADO BEING CONSULTED-STATES THAT SHE SPOKE WITH DR. ROSALES AGAIN TODAY ABOUT CARDIAC CONSULTS AND THE HE WOULD TAKE A LOOK AT THE ECHO AND THEN GO FROM THERE. SAFETY PRECAUTIONS REINFORCED. CALL LIGHT IN REACH. WILL CONT TO MONITOR.
--- NOTE | 2018-08-22 21:00 | NUR ---
PATIENT RESTING IN BED WITH O2 VIA NASAL CANNULA IN PLACE. BS TONIGHT IS 235-PATIENT COVERED WITH NOVALOG 4UNITS SQ. LEAVING FOR THE NIGHT AND BED ALARM INPLACE FOR PATIENT SAFETY. SAFETY PRECAUTIONS REINFORCED. CALL LIGHT IN REACH. WILL CONT TO MONITOR.
--- NOTE | 2018-08-23 | NUR ---
PATIENT RESTING IN BED WITH HOB ELEVATED AND O2 VIA NASAL CANNULA IN PLACE. TELE MONITOR IN PLACE. BIRD PATENT AND DRAINING YELLOW URINE. TELE MONITOR IN PLACE. BED ALARM IN PLACE FOR PATIENT SAFETY. CALL LIGHT IN REACH. WILL CONT TO MONITOR.
[2018-08-23 04:15] VITALS: BP 146/88
[2018-08-23 05:42] LABS: HEMATOCRIT 34.2 % (39.0-50.0); HEMOGLOBIN 11.3 g/dl (14.0-18.0); IMMATURE GRANULOCYTES 0.5 % (0.0-5.0); MEAN CELL VOLUME 92.7 fL CALC (80.0-100.0); MEAN CORPUSCULAR HGB 30.6 pG CALC (26.0-32.0); NEUT# 4.19 thou/uL (1.82-7.42); RED BLOOD COUNT 3.69 mill/uL (4.70-6.10); RED CELL DISTRI WIDTH 13.4 % (11.5-15.5)
[2018-08-23 05:59] LABS: ALKALINE PHOSPHATASE 145 u/l (38-126); AMYLASE 34 u/l (30-110); ANION GAP 12 (6-22 (CALC)); BILIRUBIN, TOTAL 0.4 mg/dL (0.0-1.4); BUN 11 mg/dL (8-23); BUN/CREATININE RATIO 19 (12-20 (CALC)); CARBON DIOXIDE 29 mmol/l (22-30); CHLORIDE 100 mmol/l (95-108); CREATININE 0.6 mg/dL (0.7-1.3); GFR > 60 ML/MIN (>=60 (CALC)); GFR FOR AFR.AMER. > 60 ML/MIN (>=60 (CALC)); LIPASE 70 u/l (23-300); MAGNESIUM 1.8 mg/dL (1.6-2.3); POTASSIUM 4.5 mmol/l (3.5-5.1); SGOT/AST 21 u/l (19-48); SODIUM 136 mmol/l (137-146); TOTAL PROTEIN 5.4 g/dL (6.3-8.2)
--- NOTE | 2018-08-23 07:00 | NUR ---
RECEIVED REPORT FROM NURSE CAMACHO PT IN BED, HOOKED TO O2 AT 2LPM CONTINUOUS, EVEN UNLABORED BREATHING CALL LIGHT AT REACH.
[2018-08-23 08:00] VITALS: BP 149/84
--- NOTE | 2018-08-23 08:15 | NUR ---
PATIENT SITTING IN BED, EATING BREAKFAST STARTED CHOKING ON EGGS, STARTED COUGHING AND HACKING IT OUT RESOLVED, POX AT 93% ON 3LPM, PATIENT STATED RELIEF, BUT STARTED TO FEEL PAIN ON RT RIBS WILL MEDICATE.
--- NOTE | 2018-08-23 11:10 | NUR ---
PT WAS SEEN FOR G.T. HE WAS OOB WITH MODIFIED INDEP. UTILIZING B UE WITH VERBAL CUES. HE AMBULATED W/ RW AND CGA IN THE HALLWAY ~100 FT. X 2 W/O REPORTS OF SOB. HE WAS THEN ASSISTED TO SIT IN THE RECLINER, LEG REST ELEVATED WITH PILLOWS FOR COMFORT. NO ADVERSE RXNS NOTED OR REPORTED AT THE END OF TX.
[2018-08-23 12:04] VITALS: BP 119/60
--- NOTE | 2018-08-23 12:25 | NUR ---
SEEN ON ROUNDS BY DR. ROSALES DISCUSSED THE PLAN OF CARE, AND TO CONTINUE ON THE PRESENT ANTIBIOTIC, PATIENT IS CURRENTLY EATING HIS LUNCH NO DISCOMFORTS NOTED AT THIS TIME.CALL LIGHT AT REACH
[2018-08-23 15:43] VITALS: BP 109/61
--- NOTE | 2018-08-23 16:00 | NUR ---
PATIENT RESTING IN BED SLEEPING, NO DISCOMFORTS NOTED AT THIS TIME, STILL ON 02 AT 2LPM, EVEN UNLABORED BREATHING, CALL LIGHT WITHIN REACH
[2018-08-23] MEDS ORDERED: TAMSULOSIN HCL0.4 MG PO (16:45)
[2018-08-23] MEDS ORDERED: DOXYCYCL HYC100 MG PO (16:46)
[2018-08-23] MEDS ORDERED: PANTOPRAZOLE SO40 M1 PO (16:46)
[2018-08-23] MEDS ORDERED: TRAMADOL HCL50 MG PO (16:50)
[2018-08-23 19:30] VITALS: BP 145/79
--- NOTE | 2018-08-23 20:50 | NUR ---
PER REHABILITATION SERVICES MANAGERJANICE, PT. WILL BE LEAVING TOMORROW AM; UPDATED PT.
--- NOTE | 2018-08-23 21:21 | NUR ---
ASSESSMENT COMPLETED; NO DISTRESS NOTED; DENIES NEEDS/PAIN. SCHED MEDS GIVEN; PO FLUIDS OFFERED. BRUISING NOTED TO RIGHT FLANK/CHEST. IV SITE PATENT AND SL; INSTRUCTED TO CALL FOR ALL OOB NEEDS; VERBALIZES UNDERSTANDING; BED ALARM SET AND CALL LIGHT IS IN REACH.
--- NOTE | 2018-08-24 | NUR ---
PT. RESTING IN BED WITH EYES CLOSED; NO DISTRESS NOTED; RESP EVEN AND UNLABORED; CALL LIGHT IS IN REACH. WILL CONTINUE TO MONITOR.
[2018-08-24 00:05] VITALS: BP 123/71
--- NOTE | 2018-08-24 02:20 | NUR ---
PT. RESTING IN BED WITH EYES CLOSED; NO DISTRESS NOTED; RESP EVEN AND UNLABORED. CALL LIGHT IS IN REACH.
[2018-08-24 04:35] VITALS: BP 123/73
--- NOTE | 2018-08-24 04:49 | NUR ---
PT. RESTING IN BED WITH NO DISTRESS NOTED; RESP EVEN AND UNLABORED; CALL LIGHT IS IN REACH; BED ALARM IS ON.
--- NOTE | 2018-08-24 07:01 | NUR ---
REPORT RECEIVED FROM KOLBY. PT IS SLEEPING IN BED WITH NO S/S OF DISTRESS NOTED. CALL LIGHT IN REACH.
[2018-08-24 07:31] VITALS: BP 132/81
[2018-08-24 07:33] VITALS: BP 132/81
--- NOTE | 2018-08-24 07:58 | NUR ---
ASSESSMENT DONE TELE IN PLACE. LUNGS SOUND CLEAR/DIMINISHED. O2 AT 2LPM VIA NC. PT STATED DISCOMFORT IN RIGHT SIDE OF BACK . PT REFUSED PAIN MEDICATION AT THIS TIME. #22 RW THAT APPEARS HEALTHY. PT DENIES NEEDS AT THIS TIME. SAFETY PRECAUTIONS REINFORCED AND CALL LIGHT IN REACH.
--- NOTE | 2018-08-24 11:04 | NUR ---
PT HAD A BM. ASSISTED PT TO GO BACK TO BED. BIRD CARE DONE. PT HAS NO S/S OF DISTRESS NOTED. IN ROOM. PT DENIES ANY OTHER NEEDS AT THIS TIME. CALL LIGHT IN REACH.
--- NOTE | 2018-08-24 11:45 | NUR ---
Discharge instructions given. Patient verbalizes understanding of same. Discharged in stable condition via Wheelchair to [facility] with staff. All belongings sent with pt.
--- NOTE | 2018-08-24 11:55 | NUR ---
REPORT GIVEN TO YU FROM REHAB.
== END 2018-08-24 11:45 | DRG 442 ==
LOC: ED 10:17 → ED-I 10:45 → ED 12:09 → MS2 12:10
PROVIDERS: Family Medicine; Nurse Practitioner Family; ADMIT Internal Medicine Nephrology; ATTEND Internal Medicine Nephrology
PROC: 0T9B70Z Drainage of Bladder with Drainage Device, Via Natural or Artificial Opening (ICD-10-PCS; principal; 2018-08-19)
PROC: 0W993ZZ Drainage of Right Pleural Cavity, Percutaneous Approach (ICD-10-PCS; 2018-08-22)
DX: S36.112A Contusion of liver, initial encounter (principal); S22.41XA Multiple fractures of ribs, right side, initial encounter for closed fracture; J91.8 Pleural effusion in other conditions classified elsewhere; J44.1 Chronic obstructive pulmonary disease with (acute) exacerbation; I16.0 Hypertensive urgency; I10 Essential (primary) hypertension; S20.211A Contusion of right front wall of thorax, initial encounter; S30.1XXA Contusion of abdominal wall, initial encounter; E11.9 Type 2 diabetes mellitus without complications; F03.90 Unspecified dementia, unspecified severity, without behavioral disturbance, psychotic disturbance, mood disturbance, and anxiety; I25.10 Atherosclerotic heart disease of native coronary artery without angina pectoris; I48.0 Paroxysmal atrial fibrillation; E78.5 Hyperlipidemia, unspecified; R33.9 Retention of urine, unspecified; W18.11XA Fall from or off toilet without subsequent striking against object, initial encounter; Z99.81 Dependence on supplemental oxygen; Z79.01 Long term (current) use of anticoagulants; Z79.84 Long term (current) use of oral hypoglycemic drugs; Z87.891 Personal history of nicotine dependence
CPT/HCPCS: G0378; J1650; J2060

== ENCOUNTER → 2018-09-29 | Outpatient (REF) | payer MEDICARE, OTHER ==
[~2018-09-29] MED LIST changes: +DOXYCYCL HYC100 MG PO; +LEXAPRO10 MG PO; +PANTOPRAZOLE SO40 M1 PO; +TAMSULOSIN HCL0.4 MG PO; +TRAMADOL HCL50 MG PO
[2018-09-29 08:40] LABS: MEAN CELL VOLUME 92.4 fL CALC (80.0-100.0); MEAN CORPUSCULAR HGB 30.2 pG CALC (26.0-32.0); MEAN CORPUSCULAR HGB CONC 32.7 g/L CALC (32.0-36.0); RED BLOOD COUNT 4.47 mill/uL (4.70-6.10); RED CELL DISTRI WIDTH 13.6 % (11.5-15.5)
[2018-09-29 08:41] LABS: HEMATOCRIT 41.3 % (39.0-50.0); HEMOGLOBIN 13.5 g/dl (14.0-18.0)
[2018-09-29 08:59] LABS: ALKALINE PHOSPHATASE 98 u/l (38-126); ANION GAP 15 (6-22 (CALC)); BILIRUBIN, TOTAL 0.5 mg/dL (0.0-1.4); BUN 11 mg/dL (8-23); BUN/CREATININE RATIO 21 (12-20 (CALC)); CALCULATED LDLCHOLESTEROL 39 mg/dL (62-129 (CALC)); CARBON DIOXIDE 26 mmol/l (22-30); CHLORIDE 101 mmol/l (95-108); CHOLESTEROL HDL RATIO 1.9 (<4.4 (CALC)); CREATININE 0.6 mg/dL (0.7-1.3); GFR > 60 ML/MIN (>=60 (CALC)); GFR FOR AFR.AMER. > 60 ML/MIN (>=60 (CALC)); HDL CHOLESTEROL 52 mg/dL (>=40); POTASSIUM 4.7 mmol/l (3.5-5.1); SODIUM 138 mmol/l (137-146); TOTAL CHOLESTEROL 100 mg/dl (0-199); TOTAL PROTEIN 6.2 g/dL (6.3-8.2); TOTAL TRIGLYCERIDES 45 mg/dl (30-149); VLDL CHOLESTROL 9 mg/dl (0-38 (CALC))
[2018-09-29 09:03] LABS: ALBUMIN 4.2 g/dL (3.2-5.0); SGOT/AST 42 u/l (19-48)
[2018-09-29 09:24] LABS: TSH, 3RD GENERATION 1.01 uIU/mL (0.47 - 4.68)
== END | disposition home or self-care (01) ==
LOC: LAB 08:02
PROVIDERS: ATTEND Internal Medicine
DX: E11.69 Type 2 diabetes mellitus with other specified complication (principal); I10 Essential (primary) hypertension; I25.10 Atherosclerotic heart disease of native coronary artery without angina pectoris

== ENCOUNTER → 2018-11-02 | Outpatient (REF) | payer MEDICARE, OTHER | END | disposition home or self-care (01) | LOC: DI 14:51 | PROVIDERS: ATTEND Nurse Practitioner | DX: R05 Cough (principal); J44.9 Chronic obstructive pulmonary disease, unspecified ==

== ENCOUNTER 2019-01-26 10:55 | Emergency (ER) | payer MEDICARE, OTHER ==
[~2019-01-26] VITALS: Ht 182.9 cm; Wt 71.0 kg
[2019-01-26] MEDS ORDERED: PREDNISONE1 MG PO (11:31)
[2019-01-26 11:45] LABS: HEMATOCRIT 37.9 % (39.0-50.0); HEMOGLOBIN 12.3 g/dl (14.0-18.0); IMMATURE GRANULOCYTES 0.5 % (0.0-5.0); MEAN CELL VOLUME 93.8 fL CALC (80.0-100.0); MEAN CORPUSCULAR HGB 30.4 pG CALC (26.0-32.0); MEAN CORPUSCULAR HGB CONC 32.5 g/L CALC (32.0-36.0); NEUT# 5.33 thou/uL (1.82-7.42); RED BLOOD COUNT 4.04 mill/uL (4.70-6.10); RED CELL DISTRI WIDTH 13.8 % (11.5-15.5)
[2019-01-26 11:59] LABS: ALBUMIN 4.1 g/dL (3.2-5.0); ALKALINE PHOSPHATASE 57 u/l (38-126); ANION GAP 14 (6-22 (CALC)); BILIRUBIN, TOTAL 0.5 mg/dL (0.0-1.4); BUN 19 mg/dL (8-23); BUN/CREATININE RATIO 24 (12-20 (CALC)); CARBON DIOXIDE 25 mmol/l (22-30); CHLORIDE 102 mmol/l (95-108); CREATININE 0.8 mg/dL (0.7-1.3); GFR > 60 ML/MIN (>=60 (CALC)); GFR FOR AFR.AMER. > 60 ML/MIN (>=60 (CALC)); POTASSIUM 4.7 mmol/l (3.5-5.1); SGOT/AST 17 u/l (19-48); SODIUM 136 mmol/l (137-146); TOTAL PROTEIN 6.3 g/dL (6.3-8.2)
[2019-01-26 12:29] LABS: TSH, 3RD GENERATION 1.67 uIU/mL (0.47 - 4.68)
[2019-01-26 14:14] VITALS: BP 100/53
== END 2019-01-26 14:21 | disposition home or self-care (01) ==
LOC: ED 10:55
PROVIDERS: Emergency Medicine
DX: I49.9 Cardiac arrhythmia, unspecified (principal); R06.02 Shortness of breath; R03.1 Nonspecific low blood-pressure reading; R00.8 Other abnormalities of heart beat; Z86.73 Personal history of transient ischemic attack (TIA), and cerebral infarction without residual deficits; F03.90 Unspecified dementia, unspecified severity, without behavioral disturbance, psychotic disturbance, mood disturbance, and anxiety; R53.83 Other fatigue; Z91.19 Patient's noncompliance with other medical treatment and regimen

== ENCOUNTER 2019-07-05 17:45 | Emergency (ER) | payer MEDICARE, OTHER ==
[~2019-07-05] VITALS: Ht 182.9 cm; Wt 65.0 kg
[~2019-07-05 17:45] MED LIST changes: +PREDNISONE1 MG PO
[2019-07-05 18:26] LABS: IMMATURE GRANULOCYTES 0.4 % (0.0-5.0); MEAN CORPUSCULAR HGB 30.2 pG CALC (26.0-32.0); MEAN CORPUSCULAR HGB CONC 32.5 g/L CALC (32.0-36.0); NEUT# 6.63 thou/uL (1.82-7.42); RED BLOOD COUNT 4.3 mill/uL (4.70-6.10); RED CELL DISTRI WIDTH 13.7 % (11.5-15.5)
[2019-07-05 18:28] LABS: URINE BILIRUBIN - DIPSTICK NEGATIVE (NEGATIVE); URINE BLOOD DIPSTICK NEGATIVE (NEGATIVE); URINE COLOR YELLOW; URINE GLUCOSE - DIPSTICK NEGATIVE (NEGATIVE); URINE KETONE NEGATIVE (NEGATIVE); URINE LEUK ESTERASE NEGATIVE (NEGATIVE); URINE NITRITE - DIPSTICK NEGATIVE (Negative); URINE PH 6.5 (4.5-8.0); URINE PROTEIN - DIPSTICK NEGATIVE (NEG-TRACE); URINE SPECIFIC GRAVITY 1.015; URINE UROBILINOGEN - DIPSTICK 0.2 E.U./dL (0.2)
[2019-07-05] MEDS ORDERED: FINASTERIDE5 MG PO (18:42)
[2019-07-05 18:43] LABS: ALBUMIN 3.9 g/dL (3.2-5.0); ALKALINE PHOSPHATASE 56 u/l (38-126); ANION GAP 13 (6-22 (CALC)); BILIRUBIN, TOTAL 0.4 mg/dL (0.0-1.4); BUN 19 mg/dL (8-23); BUN/CREATININE RATIO 28 (12-20 (CALC)); CARBON DIOXIDE 25 mmol/l (22-30); CHLORIDE 103 mmol/l (95-108); CREATININE 0.7 mg/dL (0.7-1.3); GFR > 60 ML/MIN (>=60 (CALC)); GFR FOR AFR.AMER. > 60 ML/MIN (>=60 (CALC)); POTASSIUM 4.4 mmol/l (3.5-5.1); SGOT/AST 18 u/l (19-48); SODIUM 137 mmol/l (137-146); TOTAL PROTEIN 6.4 g/dL (6.3-8.2)
[2019-07-05] MEDS ORDERED: SPIRIVA HANDIH18 MCG IN (18:44)
[2019-07-05] MEDS ORDERED: TAMSULOSIN0.4 MG PO (18:46)
[2019-07-05] MEDS ORDERED: ASPIRIN 81 LOW81 MG PO (18:47)
[2019-07-05] MEDS ORDERED: VIMPAT100 MG PO (18:48)
[2019-07-05] MEDS ORDERED: SIMVASTATIN40 MG PO (18:50)
[2019-07-05 20:39] VITALS: BP 118/62
== END 2019-07-05 20:39 | disposition home or self-care (01) ==
LOC: ED 17:45
PROVIDERS: Family Medicine
DX: R53.1 Weakness (principal); E11.9 Type 2 diabetes mellitus without complications; I10 Essential (primary) hypertension; J44.9 Chronic obstructive pulmonary disease, unspecified; I48.91 Unspecified atrial fibrillation; Z86.73 Personal history of transient ischemic attack (TIA), and cerebral infarction without residual deficits; Z79.84 Long term (current) use of oral hypoglycemic drugs
CPT/HCPCS: J3420

== ENCOUNTER 2019-07-09 04:17 | Emergency (ER) | payer MEDICARE, OTHER ==
[~2019-07-09] VITALS: Ht 182.9 cm; Wt 68.2 kg
[~2019-07-09 04:17] MED LIST changes: +ASPIRIN 81 LOW81 MG PO; +FINASTERIDE5 MG PO; +SPIRIVA HANDIH18 MCG IN; +TAMSULOSIN0.4 MG PO
[2019-07-09] MEDS ORDERED: HM ASPIRIN EC L81 MG PO (04:48)
[2019-07-09 05:05] LABS: HEMATOCRIT 37.6 % (39.0-50.0); HEMOGLOBIN 12.5 g/dl (14.0-18.0); IMMATURE GRANULOCYTES 0.3 % (0.0-5.0); MEAN CELL VOLUME 92.8 fL CALC (80.0-100.0); MEAN CORPUSCULAR HGB 30.9 pG CALC (26.0-32.0); MEAN CORPUSCULAR HGB CONC 33.2 g/L CALC (32.0-36.0); NEUT# 5.04 thou/uL (1.82-7.42); RED BLOOD COUNT 4.05 mill/uL (4.70-6.10); RED CELL DISTRI WIDTH 13.4 % (11.5-15.5)
[2019-07-09 05:12] LABS: ALBUMIN 3.9 g/dL (3.2-5.0); ALKALINE PHOSPHATASE 59 u/l (38-126); ANION GAP 14 (6-22 (CALC)); BILIRUBIN, TOTAL 0.4 mg/dL (0.0-1.4); BUN 25 mg/dL (8-23); BUN/CREATININE RATIO 30 (12-20 (CALC)); CARBON DIOXIDE 25 mmol/l (22-30); CHLORIDE 104 mmol/l (95-108); CREATININE 0.8 mg/dL (0.7-1.3); GFR > 60 ML/MIN (>=60 (CALC)); GFR FOR AFR.AMER. > 60 ML/MIN (>=60 (CALC)); POTASSIUM 4.6 mmol/l (3.5-5.1); SGOT/AST 18 u/l (19-48); SODIUM 137 mmol/l (137-146); TOTAL PROTEIN 6.6 g/dL (6.3-8.2)
[2019-07-09 05:17] LABS: ACT PARTIAL THROMBO TIME 27.6 SECONDS (20.0-32.5); PROTHROMBIN TIME 10.5 SECONDS (9.0-12.5)
[2019-07-09 06:33] LABS: URINE BILIRUBIN - DIPSTICK NEGATIVE (NEGATIVE); URINE BLOOD DIPSTICK NEGATIVE (NEGATIVE); URINE COLOR YELLOW; URINE GLUCOSE - DIPSTICK NEGATIVE (NEGATIVE); URINE KETONE NEGATIVE (NEGATIVE); URINE LEUK ESTERASE NEGATIVE (NEGATIVE); URINE NITRITE - DIPSTICK NEGATIVE (Negative); URINE PROTEIN - DIPSTICK NEGATIVE (NEG-TRACE); URINE UROBILINOGEN - DIPSTICK 0.2 E.U./dL (0.2)
[2019-07-09 07:31] VITALS: BP 164/73
[2019-07-09 07:48] VITALS: BP 167/73
[2019-07-09 08:00] VITALS: BP 167/73
== END 2019-07-09 08:00 | disposition short-term general hospital (02) ==
LOC: ED 04:17
PROVIDERS: Family Medicine
PROC: 30233N1 Transfusion of Nonautologous Red Blood Cells into Peripheral Vein, Percutaneous Approach (ICD-10-PCS; principal; 2019-07-09)
DX: R55 Syncope and collapse (principal); E11.9 Type 2 diabetes mellitus without complications; I10 Essential (primary) hypertension; J44.9 Chronic obstructive pulmonary disease, unspecified; I48.91 Unspecified atrial fibrillation; Z79.84 Long term (current) use of oral hypoglycemic drugs; Z86.73 Personal history of transient ischemic attack (TIA), and cerebral infarction without residual deficits
CPT/HCPCS: P9016

== ENCOUNTER 2019-07-15 11:54 | Emergency (ER) | payer MEDICARE, OTHER ==
[~2019-07-15] VITALS: Ht 182.9 cm; Wt 63.0 kg
[~2019-07-15 11:54] MED LIST changes: +HM ASPIRIN EC L81 MG PO
[2019-07-15 12:23] LABS: IMMATURE GRANULOCYTES 0.8 % (0.0-5.0); MEAN CELL VOLUME 94.2 fL CALC (80.0-100.0); MEAN CORPUSCULAR HGB 29.6 pG CALC (26.0-32.0); MEAN CORPUSCULAR HGB CONC 31.4 g/L CALC (32.0-36.0); NEUT# 4.63 thou/uL (1.82-7.42); RED BLOOD COUNT 2.94 mill/uL (4.70-6.10); RED CELL DISTRI WIDTH 13.5 % (11.5-15.5)
[2019-07-15 12:24] LABS: HEMATOCRIT 27.7 % (39.0-50.0); HEMOGLOBIN 8.7 g/dl (14.0-18.0)
[2019-07-15 12:49] LABS: ALBUMIN 3.2 g/dL (3.2-5.0); ALKALINE PHOSPHATASE 52 u/l (38-126); ANION GAP 12 (6-22 (CALC)); BILIRUBIN, TOTAL 0.4 mg/dL (0.0-1.4); BUN 11 mg/dL (8-23); BUN/CREATININE RATIO 15 (12-20 (CALC)); CARBON DIOXIDE 28 mmol/l (22-30); CHLORIDE 100 mmol/l (95-108); CREATININE 0.8 mg/dL (0.7-1.3); GFR > 60 ML/MIN (>=60 (CALC)); GFR FOR AFR.AMER. > 60 ML/MIN (>=60 (CALC)); POTASSIUM 4.1 mmol/l (3.5-5.1); SGOT/AST 21 u/l (19-48); SODIUM 135 mmol/l (137-146); TOTAL PROTEIN 5.5 g/dL (6.3-8.2)
[2019-07-15 15:28] VITALS: BP 143/67
== END 2019-07-15 15:46 | disposition home or self-care (01) ==
LOC: ED 11:54
PROVIDERS: Family Medicine
DX: R55 Syncope and collapse (principal); I10 Essential (primary) hypertension; E11.9 Type 2 diabetes mellitus without complications; J44.9 Chronic obstructive pulmonary disease, unspecified; Z86.73 Personal history of transient ischemic attack (TIA), and cerebral infarction without residual deficits; Z79.84 Long term (current) use of oral hypoglycemic drugs; R94.31 Abnormal electrocardiogram [ECG] [EKG]

== ENCOUNTER 2019-07-30 10:19 | Emergency (ER) | payer MEDICARE, OTHER ==
[~2019-07-30] VITALS: Ht 182.9 cm; Wt 70.0 kg
[2019-07-30 11:20] LABS: HEMATOCRIT 31.3 % (39.0-50.0); HEMOGLOBIN 9.6 g/dl (14.0-18.0); IMMATURE GRANULOCYTES 0.5 % (0.0-5.0); MEAN CELL VOLUME 92.1 fL CALC (80.0-100.0); MEAN CORPUSCULAR HGB 28.2 pG CALC (26.0-32.0); MEAN CORPUSCULAR HGB CONC 30.7 g/L CALC (32.0-36.0); NEUT# 3.93 thou/uL (1.82-7.42); RED BLOOD COUNT 3.4 mill/uL (4.70-6.10); RED CELL DISTRI WIDTH 13.5 % (11.5-15.5)
[2019-07-30 11:47] LABS: ALBUMIN 3.5 g/dL (3.2-5.0); ALKALINE PHOSPHATASE 55 u/l (38-126); ANION GAP 13 (6-22 (CALC)); BILIRUBIN, TOTAL 0.4 mg/dL (0.0-1.4); BUN 16 mg/dL (8-23); BUN/CREATININE RATIO 20 (12-20 (CALC)); CARBON DIOXIDE 24 mmol/l (22-30); CHLORIDE 103 mmol/l (95-108); CREATININE 0.8 mg/dL (0.7-1.3); GFR > 60 ML/MIN (>=60 (CALC)); GFR FOR AFR.AMER. > 60 ML/MIN (>=60 (CALC)); POTASSIUM 4.9 mmol/l (3.5-5.1); SGOT/AST 17 u/l (19-48); SODIUM 135 mmol/l (137-146); TOTAL PROTEIN 5.9 g/dL (6.3-8.2)
[2019-07-30 12:49] VITALS: BP 133/63
== END 2019-07-30 13:03 | disposition home or self-care (01) ==
LOC: ED 10:19
PROVIDERS: Family Medicine
DX: R00.1 Bradycardia, unspecified (principal); E11.9 Type 2 diabetes mellitus without complications; I10 Essential (primary) hypertension; I48.91 Unspecified atrial fibrillation; I27.20 Pulmonary hypertension, unspecified; Z86.73 Personal history of transient ischemic attack (TIA), and cerebral infarction without residual deficits

== ENCOUNTER 2019-08-31 | Emergency (ER) | payer MEDICARE, OTHER ==
[2019-08-31 18:38] LABS: IMMATURE GRANULOCYTES 0.7 % (0.0-5.0); MEAN CELL VOLUME 86.9 fL CALC (80.0-100.0); MEAN CORPUSCULAR HGB 26.3 pG CALC (26.0-32.0); MEAN CORPUSCULAR HGB CONC 30.2 g/L CALC (32.0-36.0); NEUT# 4.84 thou/uL (1.82-7.42); RED BLOOD COUNT 4.95 mill/uL (4.70-6.10); RED CELL DISTRI WIDTH 15.1 % (11.5-15.5)
[2019-08-31 18:44] LABS: AMYLASE 53 u/l (30-110); ANION GAP 17 (6-22 (CALC)); BILIRUBIN, TOTAL 0.5 mg/dL (0.0-1.4); BUN 18 mg/dL (8-23); BUN/CREATININE RATIO 23 (12-20 (CALC)); CARBON DIOXIDE 24 mmol/l (22-30); CHLORIDE 101 mmol/l (95-108); CREATININE 0.8 mg/dL (0.7-1.3); GFR > 60 ML/MIN (>=60 (CALC)); GFR FOR AFR.AMER. > 60 ML/MIN (>=60 (CALC)); LIPASE 91 u/l (23-300); POTASSIUM 5.1 mmol/l (3.5-5.1); SODIUM 136 mmol/l (137-146)
[2019-08-31 18:46] LABS: ALBUMIN 4.6 g/dL (3.2-5.0); ALKALINE PHOSPHATASE 83 u/l (38-126); SGOT/AST 30 u/l (19-48); TOTAL PROTEIN 7.5 g/dL (6.3-8.2)
[2019-08-31 18:56] LABS: MYOGLOBIN 54 ng/mL (0 - 121)
[2019-08-31 20:20] LABS: URINE BILIRUBIN - DIPSTICK NEGATIVE (NEGATIVE); URINE BLOOD DIPSTICK NEGATIVE (NEGATIVE); URINE COLOR YELLOW; URINE GLUCOSE - DIPSTICK NEGATIVE (NEGATIVE); URINE KETONE NEGATIVE (NEGATIVE); URINE LEUK ESTERASE NEGATIVE (NEGATIVE); URINE NITRITE - DIPSTICK NEGATIVE (Negative); URINE PH 5.5 (4.5-8.0); URINE PROTEIN - DIPSTICK NEGATIVE (NEG-TRACE); URINE SPECIFIC GRAVITY <=1.005; URINE UROBILINOGEN - DIPSTICK 0.2 E.U./dL (0.2)
[2019-08-31] MEDS ORDERED: LOTRISONE EX (20:27)
== END 2019-08-31 21:11 | disposition home or self-care (01) ==
PROVIDERS: Emergency Medicine
DX: L30.8 Other specified dermatitis (principal); F03.90 Unspecified dementia, unspecified severity, without behavioral disturbance, psychotic disturbance, mood disturbance, and anxiety; E11.9 Type 2 diabetes mellitus without complications; I48.91 Unspecified atrial fibrillation; I10 Essential (primary) hypertension; J44.9 Chronic obstructive pulmonary disease, unspecified; G40.909 Epilepsy, unspecified, not intractable, without status epilepticus; K57.30 Diverticulosis of large intestine without perforation or abscess without bleeding; I27.20 Pulmonary hypertension, unspecified; Z86.73 Personal history of transient ischemic attack (TIA), and cerebral infarction without residual deficits
CPT/HCPCS: Q9967; S0164

== ENCOUNTER 2020-08-14 06:48 | Emergency (ER) | payer MEDICARE, OTHER ==
[~2020-08-14] VITALS: Ht 182.9 cm; Wt 74.0 kg
[~2020-08-14 06:48] MED LIST changes: +LOTRISONE EX
[2020-08-14] MEDS ORDERED: DIVALPROEX SOD500 M3 PO (07:50)
[2020-08-14] MEDS ORDERED: ASPIRIN81 MG PO (07:51)
[2020-08-14] MEDS ORDERED: LAMICTAL100 M1 PO (07:51)
[2020-08-14] MEDS ORDERED: BRIMONIDINE TAR0.2 % OU (07:52)
[2020-08-14 08:45] VITALS: BP 134/79
== END 2020-08-14 09:03 | disposition home or self-care (01) ==
LOC: ED 06:48
DX: S00.03XA Contusion of scalp, initial encounter (principal); S61.411A Laceration without foreign body of right hand, initial encounter; S51.012A Laceration without foreign body of left elbow, initial encounter; F03.90 Unspecified dementia, unspecified severity, without behavioral disturbance, psychotic disturbance, mood disturbance, and anxiety; R26.89 Other abnormalities of gait and mobility; E11.9 Type 2 diabetes mellitus without complications; I10 Essential (primary) hypertension; I48.91 Unspecified atrial fibrillation; G40.909 Epilepsy, unspecified, not intractable, without status epilepticus; J44.9 Chronic obstructive pulmonary disease, unspecified; I27.20 Pulmonary hypertension, unspecified; W01.0XXA Fall on same level from slipping, tripping and stumbling without subsequent striking against object, initial encounter; Y92.002 Bathroom of unspecified non-institutional (private) residence as the place of occurrence of the external cause; Z86.73 Personal history of transient ischemic attack (TIA), and cerebral infarction without residual deficits

== ENCOUNTER 2020-08-18 17:01 | Emergency (ER) | payer MEDICARE, OTHER ==
[~2020-08-18] VITALS: Ht 182.9 cm; Wt 68.0 kg
[~2020-08-18 17:01] MED LIST changes: +ASPIRIN81 MG PO; +DIVALPROEX SOD500 M3 PO; +LAMICTAL100 M1 PO
[2020-08-18 17:22] LABS: HEMATOCRIT 43.6 % (39.0-50.0); HEMOGLOBIN 13.8 g/dl (14.0-18.0); IMMATURE GRANULOCYTES 0.8 % (0.0-5.0); MEAN CELL VOLUME 96.9 fL CALC (80.0-100.0); MEAN CORPUSCULAR HGB 30.7 pG CALC (26.0-32.0); MEAN CORPUSCULAR HGB CONC 31.7 g/dL CAL (32.0-36.0); NEUT# 3.96 thou/uL (1.82-7.42); RED BLOOD COUNT 4.5 mill/uL (4.70-6.10); RED CELL DISTRI WIDTH 13.6 % (11.5-15.5)
[2020-08-18 17:42] LABS: PROTHROMBIN TIME 10.2 SECONDS (9.0-12.5)
[2020-08-18 17:44] LABS: ALBUMIN 3.8 g/dL (3.2-5.0); ALKALINE PHOSPHATASE 66 u/l (38-126); ANION GAP 10 (6-22 (CALC)); BILIRUBIN, TOTAL 0.5 mg/dL (0.0-1.4); BUN 16 mg/dL (8-23); BUN/CREATININE RATIO 18 (12-20 (CALC)); CARBON DIOXIDE 29 mmol/l (22-30); CHLORIDE 105 mmol/l (95-108); CREATININE 0.9 mg/dL (0.7-1.3); GFR > 60 ML/MIN (>=60 (CALC)); GFR FOR AFR.AMER. > 60 ML/MIN (>=60 (CALC)); POTASSIUM 4.3 mmol/l (3.5-5.1); SGOT/AST 25 u/l (19-48); SODIUM 140 mmol/l (137-146); TOTAL PROTEIN 6.3 g/dL (6.3-8.2)
[2020-08-18 17:55] LABS: MYOGLOBIN 139 ng/mL (0 - 121)
[2020-08-18 18:50] LABS: URINE BILIRUBIN - DIPSTICK NEGATIVE (NEGATIVE); URINE BLOOD DIPSTICK NEGATIVE (NEGATIVE); URINE COLOR YELLOW; URINE GLUCOSE - DIPSTICK NEGATIVE (NEGATIVE); URINE KETONE 15 mg/dL (NEGATIVE); URINE LEUK ESTERASE NEGATIVE (NEGATIVE); URINE NITRITE - DIPSTICK NEGATIVE (Negative); URINE PROTEIN - DIPSTICK NEGATIVE (NEG-TRACE); URINE SPECIFIC GRAVITY 1.025; URINE UROBILINOGEN - DIPSTICK 0.2 E.U./dL (0.2)
[2020-08-18 20:04] VITALS: BP 187/94
== END 2020-08-18 20:00 | disposition home or self-care (01) ==
LOC: ED 17:01
PROVIDERS: Emergency Medicine
PROC: 0HQ1XZZ Repair Face Skin, External Approach (ICD-10-PCS; principal; 2020-08-18)
PROC: 0HQEXZZ Repair Left Lower Arm Skin, External Approach (ICD-10-PCS; 2020-08-18)
PROC: 0HQDXZZ Repair Right Lower Arm Skin, External Approach (ICD-10-PCS; 2020-08-18)
DX: S01.81XA Laceration without foreign body of other part of head, initial encounter (principal); S41.112A Laceration without foreign body of left upper arm, initial encounter; S41.111A Laceration without foreign body of right upper arm, initial encounter; F03.90 Unspecified dementia, unspecified severity, without behavioral disturbance, psychotic disturbance, mood disturbance, and anxiety; E11.9 Type 2 diabetes mellitus without complications; I10 Essential (primary) hypertension; J44.9 Chronic obstructive pulmonary disease, unspecified; I48.91 Unspecified atrial fibrillation; G40.909 Epilepsy, unspecified, not intractable, without status epilepticus; J45.909 Unspecified asthma, uncomplicated; I27.20 Pulmonary hypertension, unspecified; W19.XXXA Unspecified fall, initial encounter; Y92.009 Unspecified place in unspecified non-institutional (private) residence as the place of occurrence of the external cause; Z86.73 Personal history of transient ischemic attack (TIA), and cerebral infarction without residual deficits

== ENCOUNTER 2020-08-19 12:44 | Emergency (ER) | payer MEDICARE, OTHER ==
[~2020-08-19] VITALS: Ht 182.9 cm; Wt 70.0 kg
[2020-08-19 13:23] LABS: HEMATOCRIT 46.2 % (39.0-50.0); HEMOGLOBIN 14.8 g/dl (14.0-18.0); IMMATURE GRANULOCYTES 0.7 % (0.0-5.0); MEAN CELL VOLUME 97.1 fL CALC (80.0-100.0); MEAN CORPUSCULAR HGB 31.1 pG CALC (26.0-32.0); NEUT# 4.6 thou/uL (1.82-7.42); RED BLOOD COUNT 4.76 mill/uL (4.70-6.10); RED CELL DISTRI WIDTH 13.7 % (11.5-15.5)
[2020-08-19 13:49] LABS: ALBUMIN 3.7 g/dL (3.2-5.0); ALKALINE PHOSPHATASE 68 u/l (38-126); ANION GAP 12 (6-22 (CALC)); BILIRUBIN, TOTAL 0.5 mg/dL (0.0-1.4); BUN 14 mg/dL (8-23); BUN/CREATININE RATIO 18 (12-20 (CALC)); CARBON DIOXIDE 27 mmol/l (22-30); CHLORIDE 105 mmol/l (95-108); CREATININE 0.8 mg/dL (0.7-1.3); GFR > 60 ML/MIN (>=60 (CALC)); GFR FOR AFR.AMER. > 60 ML/MIN (>=60 (CALC)); POTASSIUM 4.4 mmol/l (3.5-5.1); SGOT/AST 23 u/l (19-48); SODIUM 139 mmol/l (137-146); TOTAL PROTEIN 5.9 g/dL (6.3-8.2)
[2020-08-19 13:59] LABS: MYOGLOBIN 93 ng/mL (0 - 121)
[2020-08-19 14:24] VITALS: BP 174/74
[2020-08-20] MEDS ORDERED: DIVALPROEX SOD250 MG PO (22:02)
== END 2020-08-19 14:51 | disposition home or self-care (01) ==
LOC: ED 12:44
PROVIDERS: Emergency Medicine
DX: R53.1 Weakness (principal); F03.90 Unspecified dementia, unspecified severity, without behavioral disturbance, psychotic disturbance, mood disturbance, and anxiety; E11.9 Type 2 diabetes mellitus without complications; I10 Essential (primary) hypertension; J44.9 Chronic obstructive pulmonary disease, unspecified; I48.91 Unspecified atrial fibrillation; I27.20 Pulmonary hypertension, unspecified; G40.909 Epilepsy, unspecified, not intractable, without status epilepticus; Z86.73 Personal history of transient ischemic attack (TIA), and cerebral infarction without residual deficits

== ENCOUNTER 2020-08-20 17:42 | Observation (INO) | payer MEDICARE, OTHER ==
[~2020-08-20] VITALS: Ht 182.9 cm; Wt 70.0 kg
[2020-08-20 18:55] LABS: HEMATOCRIT 42.4 % (39.0-50.0); HEMOGLOBIN 14.1 g/dl (14.0-18.0); IMMATURE GRANULOCYTES 0.6 % (0.0-5.0); MEAN CELL VOLUME 95.9 fL CALC (80.0-100.0); MEAN CORPUSCULAR HGB 31.9 pG CALC (26.0-32.0); MEAN CORPUSCULAR HGB CONC 33.3 g/dL CAL (32.0-36.0); NEUT# 6.97 thou/uL (1.82-7.42); RED BLOOD COUNT 4.42 mill/uL (4.70-6.10); RED CELL DISTRI WIDTH 13.5 % (11.5-15.5)
[2020-08-20 19:00] LABS: ALBUMIN 3.5 g/dL (3.2-5.0); ALKALINE PHOSPHATASE 59 u/l (38-126); ANION GAP 13 (6-22 (CALC)); BUN 15 mg/dL (8-23); BUN/CREATININE RATIO 22 (12-20 (CALC)); CARBON DIOXIDE 25 mmol/l (22-30); CHLORIDE 102 mmol/l (95-108); CREATININE 0.7 mg/dL (0.7-1.3); GFR > 60 ML/MIN (>=60 (CALC)); GFR FOR AFR.AMER. > 60 ML/MIN (>=60 (CALC)); POTASSIUM 4.2 mmol/l (3.5-5.1); SGOT/AST 27 u/l (19-48); SODIUM 135 mmol/l (137-146)
[2020-08-20 19:04] LABS: BILIRUBIN, TOTAL 0.8 mg/dL (0.0-1.4)
[2020-08-20 19:21] LABS: URINE BILIRUBIN - DIPSTICK NEGATIVE (NEGATIVE); URINE BLOOD DIPSTICK NEGATIVE (NEGATIVE); URINE COLOR YELLOW; URINE GLUCOSE - DIPSTICK NEGATIVE (NEGATIVE); URINE KETONE TRACE mg/dL (NEGATIVE); URINE LEUK ESTERASE NEGATIVE (NEGATIVE); URINE NITRITE - DIPSTICK NEGATIVE (Negative); URINE PROTEIN - DIPSTICK NEGATIVE (NEG-TRACE); URINE UROBILINOGEN - DIPSTICK 0.2 E.U./dL (0.2)
[2020-08-20] MEDS ORDERED: DIVALPROEX SOD250 MG PO (22:02)
[2020-08-20 23:20] VITALS: BP 124/69
[2020-08-21] VITALS (8 sets, daily range): BP systolic 116–150; BP diastolic 49–103
[2020-08-21 04:46] LABS: HEMATOCRIT 40.5 % (39.0-50.0); HEMOGLOBIN 13.3 g/dl (14.0-18.0); MEAN CELL VOLUME 95.1 fL CALC (80.0-100.0); MEAN CORPUSCULAR HGB 31.2 pG CALC (26.0-32.0); MEAN CORPUSCULAR HGB CONC 32.8 g/dL CAL (32.0-36.0); RED BLOOD COUNT 4.26 mill/uL (4.70-6.10); RED CELL DISTRI WIDTH 13.4 % (11.5-15.5)
[2020-08-21 05:05] LABS: ANION GAP 10 (6-22 (CALC)); BUN 20 mg/dL (8-23); BUN/CREATININE RATIO 29 (12-20 (CALC)); CALCULATED LDLCHOLESTEROL 71 mg/dL (62-129 (CALC)); CARBON DIOXIDE 27 mmol/l (22-30); CHLORIDE 100 mmol/l (95-108); CHOLESTEROL HDL RATIO 3.8 (<4.4 (CALC)); CREATININE 0.7 mg/dL (0.7-1.3); GFR > 60 ML/MIN (>=60 (CALC)); GFR FOR AFR.AMER. > 60 ML/MIN (>=60 (CALC)); HDL CHOLESTEROL 33 mg/dL (>=40); MAGNESIUM 1.8 mg/dL (1.6-2.3); POTASSIUM 4.3 mmol/l (3.5-5.1); SODIUM 134 mmol/l (137-146); TOTAL CHOLESTEROL 127 mg/dl (0-199); TOTAL TRIGLYCERIDES 112 mg/dl (30-149); VLDL CHOLESTROL 22 mg/dl (0-38 (CALC))
[2020-08-22 04:54] LABS: HEMATOCRIT 42.5 % (39.0-50.0); HEMOGLOBIN 13.8 g/dl (14.0-18.0); IMMATURE GRANULOCYTES 0.7 % (0.0-5.0); MEAN CELL VOLUME 94.9 fL CALC (80.0-100.0); MEAN CORPUSCULAR HGB 30.8 pG CALC (26.0-32.0); MEAN CORPUSCULAR HGB CONC 32.5 g/dL CAL (32.0-36.0); NEUT# 4.83 thou/uL (1.82-7.42); RED BLOOD COUNT 4.48 mill/uL (4.70-6.10); RED CELL DISTRI WIDTH 13.3 % (11.5-15.5)
[2020-08-22 05:21] LABS: ALBUMIN 3.4 g/dL (3.2-5.0); ALKALINE PHOSPHATASE 64 u/l (38-126); ANION GAP 12 (6-22 (CALC)); BILIRUBIN, TOTAL 0.5 mg/dL (0.0-1.4); BUN 19 mg/dL (8-23); BUN/CREATININE RATIO 26 (12-20 (CALC)); CARBON DIOXIDE 28 mmol/l (22-30); CHLORIDE 101 mmol/l (95-108); CREATININE 0.7 mg/dL (0.7-1.3); GFR > 60 ML/MIN (>=60 (CALC)); GFR FOR AFR.AMER. > 60 ML/MIN (>=60 (CALC)); POTASSIUM 4.4 mmol/l (3.5-5.1); SGOT/AST 20 u/l (19-48); SODIUM 137 mmol/l (137-146); TOTAL PROTEIN 5.6 g/dL (6.3-8.2)
[2020-08-22 05:58] VITALS: BP 178/101
[2020-08-22 07:38] VITALS: BP 210/99
[2020-08-22 10:30] VITALS: BP 158/89
[2020-08-22 14:56] VITALS: BP 162/88
[2020-08-22 20:00] VITALS: BP 166/95
[2020-08-23] VITALS (7 sets, daily range): BP systolic 121–152; BP diastolic 71–99
[2020-08-23 05:39] LABS: HEMATOCRIT 42.4 % (39.0-50.0); HEMOGLOBIN 13.7 g/dl (14.0-18.0); IMMATURE GRANULOCYTES 0.9 % (0.0-5.0); MEAN CELL VOLUME 94.4 fL CALC (80.0-100.0); MEAN CORPUSCULAR HGB 30.5 pG CALC (26.0-32.0); MEAN CORPUSCULAR HGB CONC 32.3 g/dL CAL (32.0-36.0); NEUT# 4.8 thou/uL (1.82-7.42); RED BLOOD COUNT 4.49 mill/uL (4.70-6.10); RED CELL DISTRI WIDTH 13.4 % (11.5-15.5)
[2020-08-23 06:04] LABS: ALBUMIN 3.3 g/dL (3.2-5.0); ALKALINE PHOSPHATASE 62 u/l (38-126); ANION GAP 9 (6-22 (CALC)); BILIRUBIN, TOTAL 0.6 mg/dL (0.0-1.4); BUN 16 mg/dL (8-23); BUN/CREATININE RATIO 28 (12-20 (CALC)); CARBON DIOXIDE 28 mmol/l (22-30); CHLORIDE 103 mmol/l (95-108); CREATININE 0.6 mg/dL (0.7-1.3); GFR > 60 ML/MIN (>=60 (CALC)); GFR FOR AFR.AMER. > 60 ML/MIN (>=60 (CALC)); POTASSIUM 4.2 mmol/l (3.5-5.1); SGOT/AST 22 u/l (19-48); SODIUM 136 mmol/l (137-146); TOTAL PROTEIN 5.6 g/dL (6.3-8.2)
[2020-08-24 04:00] VITALS: BP 173/96
[2020-08-24 07:49] VITALS: BP 152/85
[2020-08-24 11:20] VITALS: BP 124/68
[2020-08-24 14:25] VITALS: BP 112/58
[2020-08-24 20:00] VITALS: BP 148/79
[2020-08-25] VITALS: BP 160/69
[2020-08-25 04:00] VITALS: BP 147/71
[2020-08-25 09:04] VITALS: BP 170/95
[2020-08-25 10:30] VITALS: BP 164/87
[2020-08-25 15:00] VITALS: BP 154/91
[2020-08-25 22:09] VITALS: BP 163/86
[2020-08-26 00:31] VITALS: BP 129/74
[2020-08-26 04:55] VITALS: BP 207/114
[2020-08-26 08:17] VITALS: BP 145/77
[2020-08-26 11:00] VITALS: BP 119/64
== END 2020-08-26 14:25 | disposition home health service (06) ==
LOC: ED 17:42 → ED-I 20:39 → ED 20:51 → ED-I 20:52 → MS2 20:52 → ED-I 20:52 → MS2 22:31
PROVIDERS: Family Medicine; Nurse Practitioner; ADMIT Internal Medicine; ATTEND Internal Medicine
DX: F03.90 Unspecified dementia, unspecified severity, without behavioral disturbance, psychotic disturbance, mood disturbance, and anxiety (principal); R13.10 Dysphagia, unspecified; R62.7 Adult failure to thrive; I10 Essential (primary) hypertension; E11.9 Type 2 diabetes mellitus without complications; J44.9 Chronic obstructive pulmonary disease, unspecified; G40.909 Epilepsy, unspecified, not intractable, without status epilepticus; I27.20 Pulmonary hypertension, unspecified; E78.5 Hyperlipidemia, unspecified; I25.10 Atherosclerotic heart disease of native coronary artery without angina pectoris; I48.0 Paroxysmal atrial fibrillation; S41.112D Laceration without foreign body of left upper arm, subsequent encounter; S51.012D Laceration without foreign body of left elbow, subsequent encounter; S61.411D Laceration without foreign body of right hand, subsequent encounter; S00.03XD Contusion of scalp, subsequent encounter; S01.81XD Laceration without foreign body of other part of head, subsequent encounter; W19.XXXD Unspecified fall, subsequent encounter; Z68.20 Body mass index [BMI] 20.0-20.9, adult; Z87.891 Personal history of nicotine dependence; Z79.84 Long term (current) use of oral hypoglycemic drugs; Z86.73 Personal history of transient ischemic attack (TIA), and cerebral infarction without residual deficits; Z91.81 History of falling; Z20.822 Contact with and (suspected) exposure to COVID-19
CPT/HCPCS: J2060

== ENCOUNTER 2020-10-01 16:14 | Emergency (ER) | payer MEDICARE, OTHER ==
[~2020-10-01] VITALS: Ht 182.9 cm; Wt 68.0 kg
[~2020-10-01 16:14] MED LIST changes: +DIVALPROEX SOD250 MG PO
[2020-10-01 17:17] LABS: HEMATOCRIT 48.3 % (39.0-50.0); HEMOGLOBIN 14.6 g/dl (14.0-18.0); IMMATURE GRANULOCYTES 0.4 % (0.0-5.0); MEAN CORPUSCULAR HGB 31.2 pG CALC (26.0-32.0); MEAN CORPUSCULAR HGB CONC 30.2 g/dL CAL (32.0-36.0); NEUT# 4.08 thou/uL (1.82-7.42); RED BLOOD COUNT 4.68 mill/uL (4.70-6.10); RED CELL DISTRI WIDTH 14.2 % (11.5-15.5)
[2020-10-01 17:18] LABS: MEAN CELL VOLUME 103.2 fL CALC (80.0-100.0)
[2020-10-01 18:04] LABS: URINE BILIRUBIN - DIPSTICK NEGATIVE (NEGATIVE); URINE BLOOD DIPSTICK NEGATIVE (NEGATIVE); URINE COLOR YELLOW; URINE GLUCOSE - DIPSTICK NEGATIVE (NEGATIVE); URINE KETONE NEGATIVE (NEGATIVE); URINE LEUK ESTERASE NEGATIVE (NEGATIVE); URINE NITRITE - DIPSTICK NEGATIVE (Negative); URINE PROTEIN - DIPSTICK TRACE mg/dL (NEG-TRACE); URINE SPECIFIC GRAVITY 1.025
[2020-10-01 18:35] LABS: ALKALINE PHOSPHATASE 81 u/l (38-126); ANION GAP 13 (6-22 (CALC)); BILIRUBIN, TOTAL 0.7 mg/dL (0.0-1.4); BUN 28 mg/dL (8-23); BUN/CREATININE RATIO 29 (12-20 (CALC)); CARBON DIOXIDE 29 mmol/l (22-30); CHLORIDE 100 mmol/l (95-108); CREATININE 0.9 mg/dL (0.7-1.3); GFR > 60 ML/MIN (>=60 (CALC)); GFR FOR AFR.AMER. > 60 ML/MIN (>=60 (CALC)); SGOT/AST 23 u/l (19-48); SODIUM 137 mmol/l (137-146)
[2020-10-01 18:38] LABS: ALBUMIN 4.2 g/dL (3.2-5.0); TOTAL PROTEIN 6.8 g/dL (6.3-8.2)
[2020-10-01 19:45] VITALS: BP 133/79
== END 2020-10-01 19:45 | disposition home or self-care (01) ==
LOC: ED 16:14
PROVIDERS: Family Medicine
DX: R00.1 Bradycardia, unspecified (principal); I10 Essential (primary) hypertension; E11.9 Type 2 diabetes mellitus without complications; F03.90 Unspecified dementia, unspecified severity, without behavioral disturbance, psychotic disturbance, mood disturbance, and anxiety; J44.9 Chronic obstructive pulmonary disease, unspecified; I48.91 Unspecified atrial fibrillation; G40.909 Epilepsy, unspecified, not intractable, without status epilepticus; I27.20 Pulmonary hypertension, unspecified; Z86.73 Personal history of transient ischemic attack (TIA), and cerebral infarction without residual deficits